=== PATIENT | male | born 2000 | race Caucasian/White ===

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

== ENCOUNTER 2024-09-14 15:29 | Outpatient (AMB) | payer BC, SELFPAY ==
--- NOTE | 2024-09-14 15:29 | MHC.PC.OV ---
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 Required: No Accompanied by: Self / Same As Patient Allergies peanut [PEANUT] Allergy (Severe, Unverified 09/14/24 15:53) ANAPHYLAXIS soy [SOY] Allergy (Severe, Unverified 09/14/24 15:53) ANAPHYLAXIS tree nut [TREE NUT] Allergy (Severe, Unverified 09/14/24 15:53) ANAPHYLAXIS banana [BANANA] Allergy (Unknown, Unverified 09/14/24 15:53) UNKNOWN grape [GRAPE] Allergy (Unknown, Unverified 09/14/24 15:53) UNKNOWN strawberry [STRAWBERRY] Allergy (Unknown, Unverified 09/14/24 15:53) UNKNOWN PEANUT BUTTER Allergy (Severe, Uncoded 09/14/24 15:53) ANAPHYLAXIS GREEN PEAS Allergy (Unknown, Uncoded 09/14/24 15:53) RASH, SHAKY MULTIPLE FOOD ALLERGIES Allergy (Unknown, Uncoded 09/14/24 15:53) Unknown Medication List - Last Reconciled 09/14/24 by Toñito Phillip MD No Known Home Meds Tobacco use date assessed: 09/14/24 Dental Screening Dental Screen Date: 09/14/24 Did you have a dental visit in the last 12 months?: Yes Did you have a dental problem in the last 6 months where you did not have access to dental care?: No Was dental information given to patient?: Patient has dentist [facility] Family History Father No problems noted. Mother No problems noted. Social History Housing: House Alcohol intake: current Alcohol intake frequency: does not drink Patient Tobacco Use Status: Never used Tobacco service: No Current occupational status: employed Cognitive needs: No Hearing needs: No Vision needs: Yes (rx glasses) Questionnaire PHQ-9 Over the last 2 weeks, how often have you been bothered by any of the following problems? 1. Little interest or pleasure in doing things: not at all 2. Feeling down, depressed, or hopeless: not at all 3. Trouble falling or staying asleep, or sleeping too much: not at all 4. Feeling tired or having little energy: not at all 5. Poor appetite or overeating: not at all 6. Feeling bad about yourself - or that you are a failure or have let yourself or your family down: not at all 7. Trouble concentrating on things, such as reading the newspaper or watching television: not at all 8. Moving or speaking so slowly that other people could have noticed. Or the opposite - being so fidgety or restless that you have been moving around a lot more than usual: not at all 9. Thoughts that you would be better off or of hurting yourself in some way: not at all Total score: 0 Source: Developed by Drs. Martin Diez, Nathaly Gonzalez, Qamar Castro and colleagues, with an educational benja from [employer]. Thrive Questionnaire Date Thrive assessed: 09/14/24 I am a: Patient What is your living situation today?: I have a steady place to live Within the past 12 months, did the food you bought not last and you didn't have the money to get more?: Never true Within the past 12 months, did you worry whether your food would run out before you got money to buy more?: Never true Do you have trouble paying for medicines?: No Do you have trouble getting transportation to medical appointments?: No Do you have trouble paying your heating and electricity bill?: No Do you have trouble taking care of your child, family member or friend?: No Do you have trouble with day-to-day activities such as bathing, preparing meals, shopping, managing finances, etc.?: No Are you currently unemployed and looking for a job?: No Are you interested in more education?: No Please select the resources that you would like help with: None THRIVE Score: 0 AUDIT C Alcohol Use Questionnaire (AUDIT-C) 1. How often do you have a drink containing alcohol?: Never 3. How often do you have six or more drinks on one occasion?: Never Total Score: 0 PAULETTE-7 AMB Questionnaire PAULETTE-7 Date PAULETTE - 7 assessed: 09/14/24 Feeling nervous, anxious, or on edge: 1 = Several days Not being able to stop or control worryin = Not at all Worrying too much about different things: 0 = Not at all Trouble relaxin = Not at all Being so restless that it is hard to sit still: 0 = Not at all Becoming easily annoyed or irritable: 0 = Not at all Feeling afraid as if something awful might happen: 0 = Not at all Total PAULETTE-7 score (0-4 normal; 5-9 mild; 10-14 moderate; 15-21 severe): 1 Source: Developed by Drs. Martin Diez, Nathaly Gonzalez, Qamar Castro and colleagues, with an educational benja from [employer]. Physical exam (Primary Care) Vital Signs: Last Vital Signs Temp 98.0 F 09/14/24 15:31 Pulse 84 09/14/24 15:31 Resp 16 09/14/24 15:31 BP 118/65 09/14/24 15:31 Pulse Ox 96 09/14/24 15:31 Oxygen Delivery Method Room Air 09/14/24 15:31 BMI result Body Mass Index 22.5 Tobacco/Smoking Status: Tobacco use Status Tobacco use date assessed 09/14/24 09/14/24 15:37 Patient Tobacco Use Status Never used Tobacco 09/14/24 15:37 PHQ-9: PHQ-9 Score PHQ-9: Total score 0 09/14/24 15:37 Thrive Assessment: Date of Thrive Assessment Date Thrive assessed 09/14/24 09/14/24 15:37 Coding Level of Care Code New Pt [facility] Care 18-39yr([id number] Diagnoses Annual physical exam Z00.00 Assessment & Plan Assessment & Plan (1) Annual physical exam: Code(s): Z00.00 - Encounter for general adult medical examination without abnormal findings Plan: BW ordered. Will call with the results Plan History of Present Illness 23 yr old patient presents [facility] and requests an annual physical. 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 He has not expressed any current health concerns, nor does he report taking any regular medications. 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 The patient uses nicotine pouches and denies using other substances. The patient has been consistently using protection during previous sexual activities and does not declare current sexual activity or relations with men. There is no report of pain or discomfort, and baseline assessments have been planned to ensure a smooth transition to adult healthcare. 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 - Education: Currently not in school, but intends to pursue a culinary certification. - Substance Use: Utilizes nicotine pouches; denies use of alcohol or tobacco. - Sexual Activity: Not currently sexually active; consistently uses protection during past sexual activity and denies sexual relations with men. - Physical Activity: Currently not participating in sports; intends to return to gym activities. Review of Systems - General: Denies current health concerns. - Respiratory: Denies symptoms. - Gastrointestinal: Denies stomach pain. - Genitourinary: Denies current sexual activity and reports consistent use of protection in past encounters. - Neurological: Denies symptoms. Physical Exam General: Cooperative and healthy appearing Nutritional Appearance: Well nourished Orientation/consciousness: Patient oriented x3 Limitations: No limitations Head: Normal to inspection General: Appearance normal, both eyes and all related structures Neck: Normal visual inspection Chest: Normal palpation of entire chest wall Respiratory: Breathe ormal respiratory effort Neurology: Patient oriented x3 Results - Labs: Baseline blood work and labs ordered. Plan Discussion Notes During the visit, I discussed with the patient the rationale for transitioning from pediatric to adult healthcare. I explained the importance of continuing preventive care and baseline health assessments, for which I ordered blood work. I discussed the appropriate use of protection during sexual activities to prevent sexually transmitted infections and emphasized that consistent usage is essential. He was advised on the benefits of engaging in regular physical activity and encouraged to follow through with his intention to resume gym-based workouts. We discussed the continuation of his nicotine pouch usage, with advisement on its risks. The patient was informed that this initial visit is mainly to establish care and collect baseline health metrics to ensure his health needs are managed appropriately as he transitions to adult health care services. Patient Instructions - Go to the lab for blood work and baseline tests. - Use protection if engaging in sexual activities. - Get involved in regular physical activity to improve overall health. - Be aware of the risks associated with nicotine pouches. - Follow up for routine health checks and care planning. Orders: Orders Basic Metabolic Panel Today Z00.00 - Encounter for general adult medical examination without abnormal findings Complete Blood Count no Diff Today Z00.00 - Encounter for general adult medical examination without abnormal findings UA and rflx microscopic Today Z00.00 - Encounter for general adult medical examination without abnormal findings Liver Panel Today Z00.00 - Encounter for general adult medical examination without abnormal findings Thyroid Stimulating Hormone Today Z00.00 - Encounter for general adult medical examination without abnormal findings
[2024-09-14 15:31] VITALS: BP 118/65; PULSE 84; RESP 16; TEMP 36.7; O2SAT 96; BMI 22.5
--- OUTSIDE RECORDS SUMMARY | 2024-09-14 16:18 | XMS_ITS | Encounter Summary ---
Author Organization [facility] Address [address] [place] [id number] Phone Care Team Providers Care Lease Administration Supervisor Name Role Phone Darryl Hammond MD Primary Care Provider [phone] Encounter Details Date Type Department Care Team (Late st Contact Info) Description 09/10/2010 Conversion Encounter [facility] [address] [place] [address] [place] [id number] Social History Tobacco Use Types Packs/Day Years Used Date Smoking Tobacco: Never Assessed Sex and Gender Information Value Date Recorded Sex Assigned at Not on file Legal Sex Male 6:28 PM EDT Gender Identity Not on file Sexual Orientation Not on file documented as of this encounter Plan of Treatment Upcoming Encounters Date Type Department Care Team (Late st Contact Info) Description 01/17/2025 11:30 AM EDT Office Visit [facility] [address] [place] [address] [place] [phone] Darryl Hammond MD [address] [place] [address] [place] [phone] documented as of this encounter Visit Diagnoses Not on filedocumented in this encounter Care Teams Lease Administration Supervisor Relationship Specialty Start Date End Date Darryl Hammond MD [address] [place] [address] [place] [address] PCP - General 09/10/17 documented as of this encounter
--- OUTSIDE RECORDS SUMMARY | 2024-09-14 16:18 | XMS_ITS | Clinical Summary ---
Author Organization [facility] Address [address] [place] [phone] Phone Care Team Providers Care Front End Alignment Specialist Name Role Phone Darryl Hammond MD Primary Care Provider [phone] Allergies Active Allergy Reactions Criticality Noted Date Comments Crab (Diagnostic) Environmental Food Garlic Isoflavones (Soy) Lemon Flavoring Agent (Non-Screening) Marijuana (Cannabis Sativa) 11/22/19 20 Peanuts (Food) Pecan Nut (Diagnostic) Pistachio Nut (Diagnostic) Tree Nuts (Food) Medications EPINEPHrine 0.3 MG/0.3ML injection syringe 12/29/2018 Active Active Problems Problem Noted Date Diagnosed Date Blood in stool, sergio 12/09/2023 Assessment & Plan (12/09/2023 9:06 AM EDT): Freddie has a long history of abdominal pain and discomfort. There is a family history of Crohn's disease. We will obtain blood work for Corhn's or other inflammatory processes, send him to GI, and start softening his stools. Resting tremor 08/29/2022 Assessment & Plan (08/29/2022 11:39 AM EDT): This appears to be a normal resting tremor. I have reassured him, this is normal. Family history of Crohn's disease 03/26/2019 Assessment & Plan (08/29/2022 11:39 AM EDT): Freddie's stomach has been doing well. His anxiety is low, he is working. No concerns. Doing well. Panic attack 01/15/2019 Dysthymic disorder 10/10/2016 Overview (12/02/2017): Depression with anxiety (300.4) Onset: 10/10/2016 Added by: Aura Vallejo Allergic rhinitis 09/13/2016 Overview (12/02/2017): Allergic rhinitis, unspecified cause (477.9) Onset: 09/13/2016 Added by: Christina Petty Anxiety and depression 12/23/2008 Resolved Problems Problem Noted Date Diagnosed Date Resolved Date Left testicular pain 11/29/2020 023 Assessment & Plan (11/29/2020 10:48 PM EDT): Mild varicocele noted on left side. Discussed this diagnosis. Will obtain ultrasound to confirm this. Consider referral to urology for varicocele. With testicular and groin pain, ultrasound to rule out hernia and testicular torsion. UA reassuring. Possible epididymitis with pain described. Will obtain urine culture as well as testing for gonorrhea and chlamydia. Accidental drug overdose 11/25/2019 Assessment & Plan (11/25/2019 9:02 AM EDT): He will continue with therapy and child psychiatrist. He was sleep deprived, used adderall, and was on marijuana and possibly LSD. He had hallucinations and paranoia. He will likely need treatment for anxiety. Other constipation 11/25/2019 0 Persistent testicular pain 11/22/2019 0 12/09/2019 Assessment & Plan (11/22/2019 4:05 PM EDT): This pain seems more like vascular stasis and blue balls , this does appear benign, and should go away on its own. I suggest to increase fluids of water, use ice when necessary. Continue to walk around. Gastroesophageal reflux disease 03/23/2019 08/29/2022 Abrasion of finger of left hand 03/08/2019 04/19/2019 Assessment & Plan (03/08/2019 2:34 PM EST): With history of significant abrasion of finger in a work shop concern for dirty wound. Tetanus vaccine most recently given over 5 years ago so will give a booster tetanus vaccine. Cleaned wound in office and put on zinc ointment and bandage. Should heal with time will also treat with topical antibiotic to area. Head injury due to trauma 02/16/2018 Acute non-recurrent maxillary sinusitis 01/16/2018 12/09/2019 Overweight 12/02/2017 12/09/2019 Irritable colon 11/14/2015 08/29/2022 Overview (12/02/2017): Irritable bowel syndrome (564.1) Onset: 11/14/2015 Added by: Darryl Hammond Encounters Date Type Department Care Team Description 08/23/2024 Erroneous Telephone Encounter [facility] [address] [facility] [place] [address] Emelyn Alberto from Last 3 Months Immunizations Immunization Administration Dates Next Due DTaP 5 12/24/2007, 5,05/24/2003,03/07,01/07/2003 HPV Vaccine 9 Valent 11/18/2016,11/14/2015 Hep A, ped/adol 12/04/2018,12/02/2017 Hep B, ped/adol 02/09/2004,05/24/2003,2002 Hib (PRP-T) 05/11/2004, 4,03/07/2003,01/07 IPV 12/24/2007, 5,03/07/2003,01/07 Influenza, injectable, quadrivalent 02/06/2018,0 06/12/2017 Influenza, injectable, quadr ivalent, preservative free 02/24/2020,01/05/2019,03/02/2015 Influenza, intranasal, quadrivalent 12/29/2012 Influenza, intranasal, trivalent 12/27/2011,12/04,12/26/2009 MMR 12/24/2007,12/09/2003 Meningococcal Conj (Menactra) MCV4P 12/04/2018,0 12/30/2013 Pneumococcal Conjugate 05/11/2004,2003,03/07/2003,01/07 Tdap 03/08/2019,12/30/2013 Varicella 12/24/2007,12/09/2003 Family History Medical History Relation Name Comments No Known Problems Brother Honorio Heart disease Father Mely Hypertension Father Mely Breast cancer Mother Ramiro Heart attack Mother Ramiro Hypotension Mother Ramiro No Known Problems Sister 1 Adrianne Skin cancer Sister 2 [place] Relation Name Status Comments Brother Honorio Alive Father Mely Alive Father: Alive a nd well Maternal Grandfather Materna l grandfather: Alcoholism Mother Ramiro Alive Mother: Anxiety , Neurofibromatosis, Alive and well Other Family history of Elevated cholesterol, Family history of Cancer -, Family history of Diabetes mellitus Paternal Grandfather Paterna l grandfather: Alive and well, Alcoholism Sister 1 Adrianne Sister: Develop mental delay, Anxiety Sister 2 [place] Sister: Develop mental delay, Anxiety Social History Tobacco Use Types Packs/Day Years Used Date Smoking Tobacco: Never Smokeless Tobacco: Never Tobacco Cessation:Counseling Given: No Alcohol Use Standard Drinks/Week Comments No 0 (1 standard drink = 0.6 oz pur e alcohol) Hunger/Food Answer Date Recorded In the last 12 months, did y ou or your family ever eat less than you felt you should because there wasn't enough money for food? No 01/09/2024 Stable Housing Answer Date Recorded Are you worried that in the next 2 months you may not have stable housing? No 01/09/2024 Transportation Concerns Answer Date Rec orded In the last 12 months, have you or your family ever had to go without healthcare because you didn't have a way to get there? No 01/09/2024 Hazards in Home Answer Date Recorded Think about the place you li ve. Do you have problems with any of the following? Pests (mice or roaches), mold, no/not working smoke detectors, water leaks, no window guards. No 2023 Financing Utilities Answer Date Recorde d In the last 12 months, has t he electric, gas, oil, or water company threatened to shut off your services in your home? No 01/09/2024 Safety at Home Answer Date Recorded Are you or your family worried about feeling saf e in your home? No 01/09/2024 Outside Support Answer Date Recorded Do you feel that you need mo re support from other people or programs to help you care for yourself or your family? No 01/09/2024 Understanding Health Concerns Answer Da te Recorded Do you need help understandi ng your or your child's healthcare needs (diagnosis, medications, plan, etc.)? No 01/09/2024 Financing Health Concerns Answer Date R ecorded In the last 12 months, was t here a time when your child needed to see a doctor or get medications or supplies but could not because of cost? No 01/09/2024 Missing School or Work Answer Date Migel rded Did you or your child miss s chool or work because of a health problem that could have been avoided? No 01/09/2024 Child Education Answer Date Recorded Do you have concerns about y our/your child's learning or behavior in school, preschool, or daycare? No 01/09/2024 Sex and Gender Information Value Date Recorded Sex Assigned at Not on file Legal Sex Male 6:28 PM EDT Gender Identity Not on file Sexual Orientation Not on file Last Filed Vital Signs Vital Sign Reading Time Taken Comments Blood Pressure 116/64 01/09/2024 1:05 PM EDT Pulse 95 01/07/2023 2:37 PM EDT Temperature 36.8 ??C (98.3 ??F) 01/09/2024 1:05 PM ED T Respiratory Rate - - Oxygen Saturation 96% 01/07/2023 2:37 PM EDT Inhaled Oxygen Concentration - - Weight 81 kg (178 lb 9.6 oz) 01/09/2024 1:05 PM EDT Height 193.7 cm (6' 4.25 ) 01/09/2024 1:05 PM ED T Body Mass Index 21.6 01/09/2024 1:05 PM EDT Plan of Treatment Upcoming Encounters Date Type Department Care Team (Late st Contact Info) Description 01/17/2025 11:30 AM EDT Office Visit [facility] [address] [place] [address] [place] [phone] Darryl Hammond MD [address] [place] [address] [place] [phone] Health Maintenance Due Date Last Done Comments Men B Vaccine (1 of 2 - Standard) 2018 Influenza Vaccines (#1) 2023 02/24/20, 01/05/2019, 02/06/2018, Additional history exists COVID-19 Vaccine (1 - 2023-2 5 season) 2024 DTaP,Tdap,and Td Vaccines (8 - Td or Tdap) 03/08/2029 03/08/2019, 12/30/2013, 12/24/2007, Additional history exists Hepatitis B Vaccines Completed 02/09/2004, 05/24/2003, 2002 HIB Vaccines Completed 05/11/2004, 05/06, 03/07/2003, Additional history exists Pneumococcal Vaccine Completed 05/11/2004, 05/24/2003, 03/07/2003, Additional history exists IPV Vaccines Completed 12/24/2007, 11/2004, 03/07/2003, Additional history exists MMR Vaccines Completed 12/24/2007, 12/09/2003 Varicella Vaccines Completed 12/24/2007, 12/09/2003 HPV Vaccines Completed 11/18/2016, 11/14/2015 Hepatitis A Vaccines Completed 12/04/2018, 12/03/19 18 Meningococcal Vaccine Completed 12/04/2018, 014 Insurance [facility] H[facility] Care Teams Front End Alignment Specialist Relationship Specialty Start Date End Date Darryl Hammond MD [address] [place] [address] [place] [address] [facility] - General 09/10/17
--- OUTSIDE RECORDS SUMMARY | 2024-09-14 16:18 | XMS_ITS | Encounter Summary ---
Author Organization [facility] Address [address] [place] [address] Phone Care Team Providers Care Link Trainer Teacher Name Role Phone Darryl Hammond MD Primary Care Provider [phone] Encounter Details Date Type Department Care Team (Late st Contact Info) Description 12/19/2016 Conversion Encounter [facility] - [address] [address] Social History Tobacco Use Types Packs/Day Years [...] Description 01/17/2025 11:30 AM EDT Office Visit [facility] [address] [place] [address] [place] [phone] Darryl Hammond MD [address] [place] [address] [place] [phone] documented as of this encounter Visit Diagnoses Not on filedocumented in this encounter Care Teams Link Trainer Teacher Relationship Specialty Start Date End Date Darryl Hammond MD [address] [place] [address] [place] [id number] PCP - General 09/10/17 documented as of this encounter
--- OUTSIDE RECORDS SUMMARY | 2024-09-14 16:18 | XMS_ITS | Encounter Summary ---
Author Organization [facility] Address [address] [place] [phone] Phone Care Team Providers Care Corporate Account Executive Name Role Phone Darryl Hammond MD Primary Care Provider Reason for Visit * Reason Comments Med Refill Encounter Details Date Type Department Care Team (Late st Contact Info) Description 09/15/2022 Refill [facility] [address] [place] [address] [place] [phone] Darryl Hammond MD [address] [place] [address] [place] [phone] Acne rosacea Social History Tobacco Use Types Packs/Day Years Used Date Smoking Tobacco: Never Smokeless Tobacco: Never Alcohol Use Standard Drinks/Week Comments No 0 (1 standard drink = 0.6 oz pur e alcohol) Hunger/Food Answer Date Recorded In the last 12 months, did y ou or your family ever eat less than you felt you should because there wasn't enough money for food? No 12/19/2021 Stable Housing Answer Date Recorded Are you worried that in the next 2 months you may not have stable housing? No 12/19/2021 Transportation Concerns Answer Date Rec orded In the last 12 months, have you or your family ever had to go without healthcare because you didn't have a way to get there? No 12/19/2021 Hazards in Home Answer Date Recorded Think about the place you li ve. Do you have problems with any of the following? Pests (mice or roaches), mold, no/not working smoke detectors, water leaks, no window guards. No 2021 Financing Utilities Answer Date Recorde d In the last 12 months, has t he electric, gas, oil, or water company threatened to shut off your services in your home? No 12/19/2021 Safety at Home Answer Date Recorded Are you or your family worried about feeling saf e in your home? No 12/19/2021 Outside Support Answer Date Recorded Do you feel that you need mo re support from other people or programs to help you care for yourself or your family? No 12/19/2021 Understanding Health Concerns Answer Da te Recorded Do you need help understandi ng your or your child's healthcare needs (diagnosis, medications, plan, etc.)? No 12/19/2021 Financing Health Concerns Answer Date R ecorded In the last 12 months, was t here a time when your child needed to see a doctor or get medications or supplies but could not because of cost? No 12/19/2021 Missing School or Work Answer Date Migel rded Did you or your child miss s chool or work because of a health problem that could have been avoided? No 12/19/2021 Sex and Gender Information Value Date Recorded Sex Assigned at Not on file Legal Sex Male 6:28 PM EDT Gender Identity Not on file Sexual Orientation Not on file documented as of this encounter Miscellaneous Notes * Telephone Encounter - Duke Kuhn MD - 09/16/2022 10:11 AM EDT Refilling currently but if persistent issue would want patient to follow up in the office. * Telephone Encounter - Paz Martell MA - 09/16/2022 8:23 AM EDT JABs absence documented in this encounter Plan of Treatment Upcoming Encounters Date Type Department Care Team (Late st Contact Info) Description 01/17/2025 11:30 AM EDT Office Visit [facility] [address] [place] [address] [place] [address] Darryl Hammond MD [facility] [place] [phone] documented as of this encounter Visit Diagnoses Diagnosis Acne rosacea Rosacea documented in this encounter Care Teams Corporate Account Executive Relationship Specialty Start Date End Date Darryl Hammond MD [facility] [place] [address] PCP - General 09/10/17 documented as of this encounter
== END 2024-09-14 15:48 | disposition home or self-care (01) ==
LOC: HO.HMCSH 15:29
PROVIDERS: PCP Internal Medicine; Visit Provider Internal Medicine
DX: Z00.00 Encounter for general adult medical examination without abnormal findings (principal)

== ENCOUNTER → 2024-09-14 15:29 | Outpatient (BNVA) | payer BC, SELFPAY | PROVIDERS: PCP Internal Medicine; Visit Provider Internal Medicine | DX: Z13.89 Encounter for screening for other disorder (principal) ==

== ENCOUNTER 2024-10-13 09:05 | Outpatient (REF) | payer BC, SELFPAY ==
--- OUTSIDE RECORDS SUMMARY | 2024-10-13 09:37 | XMS_ITS | Encounter Summary ---
Author Organization [facility] Address [address] [place] [address] Phone Care Team Providers Care Warehouse Driver Name Role Phone Darryl Hammond MD Primary Care Provider [phone] Encounter Details Date Type Department Care Team (Late st Contact Info) Description 09/10/2010 Conversion Encounter [facility] [address] [place] [address] [place] [phone] Social History Tobacco Use Types Packs/Day Years [...] Description 01/17/2025 11:30 AM EDT Office Visit [facility] [address] [place] [address] [place] [address] Darryl Hammond MD [address] [place] [address] [place] [address] documented as of this encounter Visit Diagnoses Not on filedocumented in this encounter Care Teams Warehouse Driver Relationship Specialty Start Date End Date Darryl Hammond MD [address] [place] [address] [place] [address] PCP - General 09/10/17 documented as of this encounter
[2024-10-13 10:34] LABS: Hematocrit 43.2 % (42.0-52.0); Hemoglobin 15.4 g/dl (14.0-18.0); Mean Corpuscular HGB Conc 35.6 g/dl (31.0-36.0); Mean Corpuscular Volume 89.6 fL (80.0-98.0); Mean Platelet Volume 10.2 fL (9.4-12.4); Platelet Count 280 X10*3/uL (160-400); Red Blood Count 4.82 X10*6/uL (4.60-5.80); Red Cell Distribution Width 12.4 % (11.0-16.0); White Blood Count 4.3 X10*3/uL (4.8-10.8)
[2024-10-13 10:48] LABS: Appearance Urine Clear; Color Urine Yellow; Glucose Urine UA Negative (Negative); Leukocyte Esterase Urine Negative (Negative); Nitrite Urine Negative (Negative); Specific Gravity - Urine <= 1.005 (1.005-1.025); Urine Blood Negative (Negative); Urine Ketones Negative (Negative); Urine Protein Negative (Neg-Trace)
[2024-10-13 10:55] LABS: Alanine Aminotransferase 23 U/L (0-40); Albumin Level 4.7 g/dL (3.5-5.0); Alkaline Phosphatase 83 U/L (39-117); Anion Gap 9 (12-20); Aspartate Amino Transferase 22 U/L (5-37); Bilirubin Direct 0.2 mg/dL (0.0-0.5); Bilirubin Total 0.5 mg/dL (0.0-1.0); Blood Urea Nitrogen 9 mg/dL (9-16); Calcium 9.6 mg/dL (8.4-10.2); Carbon Dioxide 29 mmol/L (22-29); Chloride 105 mmol/L (96-108); Estimated Glomerular Filt Rate > 60; Glucose Random 66 mg/dL (60-115); Potassium 3.8 mmol/L (3.3-5.1); Sodium 139 mmol/L (135-145); Total Protein 7.2 g/dL (6.5-8.0)
[2024-10-13 11:02] LABS: Thyroid Stimulating Hormone 1.11 uIU/mL (0.32-4.0)
== END 2024-10-13 09:06 | disposition home or self-care (01) ==
LOC: HO.HMGCLDS 09:05
PROVIDERS: PCP Internal Medicine; Visit Provider Internal Medicine
DX: Z00.00 Encounter for general adult medical examination without abnormal findings (principal)
CPT/HCPCS: 36415; 80048; 80076; 81003; 84443; 85027

== ENCOUNTER 2024-12-07 13:14 | Outpatient (AMB) | payer BC, SELFPAY ==
[2024-12-07 13:16] VITALS: BP 133/73; PULSE 100; RESP 14; TEMP 37; O2SAT 98; BMI 22.5
--- NOTE | 2024-12-07 13:16 | MHC.PC.OV ---
Vital Signs 12/07/24 13:16 Height 6 ft 3.2 in Weight 181 lb BMI 22.5 BP 133/73 Respiration 14 Pulse 100 Pulse Source Pulse Oximeter Temp 98.6 F Temp Source Temporal Artery Scan Pulse Oximetry (%) 98 Oxygen Delivery Method Room Air Intake Visit Reasons: Tremors Cinder Pit Worker Required: No Accompanied by: Mother Allergies peanut (PEANUT) Allergy (Severe, Unverified 12/07/24 13:31) ANAPHYLAXIS soy (SOY) Allergy (Severe, Unverified 12/07/24 13:31) ANAPHYLAXIS tree nut (TREE NUT) Allergy (Severe, Unverified 12/07/24 13:31) ANAPHYLAXIS PEANUT BUTTER Allergy (Severe, Uncoded 12/07/24 13:31) ANAPHYLAXIS chick peas Allergy (Mild, Uncoded 12/07/24 13:31) Unknown GREEN PEAS Allergy (Unknown, Uncoded 12/07/24 13:31) RASH, SHAKY MULTIPLE FOOD ALLERGIES Allergy (Unknown, Uncoded 12/07/24 13:31) Unknown Medication List - Last Reconciled 12/07/24 by Idalmis Cartwright PA-C No Known Home Meds Tobacco use date assessed: 12/07/24 Dental Screening Dental Screen Date: 09/14/24 HPI Tremors HPI Details The patient is a 24-year-old male presenting with tremors and anxiety. The tremors are described as intermittent shaking of the hands and occasionally the neck, occurring sporadically without a constant pattern. The patient reports that these episodes sometimes occur at work and are not necessarily associated with anxiety, although he is concerned about the onset of shaking. The patient has a history of anxiety, which was diagnosed in childhood, and he was previously prescribed lorazepam, although he is not currently taking it. He has not been hospitalized for anxiety or depression, but there was an episode in 2019 where he experienced a manic state after substance use, leading to hospitalization. The patient denies current use of substances other than nicotine pouches and occasional alcohol consumption, which may contribute to his symptoms. 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 - Substance Use: Uses nicotine pouches and consumes alcohol occasionally. - Exercise: Attends the gym but does not follow a consistent exercise regimen. [facility] Medical History (Updated 12/07/24 @ 13:58 by Idalmis Cartwright PA-C) Substance use disorder Anxiety Occasional tremors Family History Father No problems noted. Mother No problems noted. Social History Housing: House Alcohol intake: current Alcohol intake frequency: does not drink Patient Tobacco Use Status: Never used Tobacco service: No Current occupational status: employed Cognitive needs: No Hearing needs: No Vision needs: Yes (rx glasses) Questionnaire PHQ-9 Over the last 2 weeks, how often have you been bothered by any of the following problems? 1. Little interest or pleasure in doing things: not at all 2. Feeling down, depressed, or hopeless: not at all 3. Trouble falling or staying asleep, or sleeping too much: not at all 4. Feeling tired or having little energy: not at all 5. Poor appetite or overeating: not at all 6. Feeling bad about yourself - or that you are a failure or have let yourself or your family down: not at all 7. Trouble concentrating on things, such as reading the newspaper or watching television: not at all 8. Moving or speaking so slowly that other people could have noticed. Or the opposite - being so fidgety or restless that you have been moving around a lot more than usual: not at all 9. Thoughts that you would be better off or of hurting yourself in some way: not at all Total score: 0 Depression Screening Interpretation: Negative Depression Screening Done: Yes 53267 - PHQ-9 Billing: Yes Source: Developed by Drs. Martin Diez, Nathaly Gonzalez, Qamar Castro and colleagues, with an educational benja from [employer]. Thrive Questionnaire Date Thrive assessed: 09/14/24 I am a: Patient What is your living situation today?: I have a steady place to live Within the past 12 months, did the food you bought not last and you didn't have the money to get more?: Never true Within the past 12 months, did you worry whether your food would run out before you got money to buy more?: Never true Do you have trouble paying for medicines?: No Do you have trouble getting transportation to medical appointments?: No Do you have trouble paying your heating and electricity bill?: No Do you have trouble taking care of your child, family member or friend?: No Do you have trouble with day-to-day activities such as bathing, preparing meals, shopping, managing finances, etc.?: No Are you currently unemployed and looking for a job?: No Are you interested in more education?: No Please select the resources that you would like help with: None THRIVE Score: 0 AUDIT C Alcohol Use Questionnaire (AUDIT-C) 1. How often do you have a drink containing alcohol?: Never 3. How often do you have six or more drinks on one occasion?: Never Total Score: 0 Score Reviewed/Action Taken: No PAULETTE-7 AMB Questionnaire PAULETTE-7 Date PAULETTE - 7 assessed: 09/14/24 Feeling nervous, anxious, or on edge: 1 = Several days Not being able to stop or control worryin = Not at all Worrying too much about different things: 0 = Not at all Trouble relaxin = Not at all Being so restless that it is hard to sit still: 0 = Not at all Becoming easily annoyed or irritable: 0 = Not at all Feeling afraid as if something awful might happen: 0 = Not at all Total PAULETTE-7 score (0-4 normal; 5-9 mild; 10-14 moderate; 15-21 severe): 1 Source: Developed by Drs. Martin Diez, Nathaly Gonzalez, Qamar Castro and colleagues, with an educational benja from [employer]. PAULETTE-7 Assessment Billing PAULETTE-7 Assessment Tool: PAULETTE-7 Assessment 52920 Review of Systems Const Details: - Neurological: Reports intermittent tremors in hands and neck. Denies headaches, dizziness, or balance issues. - Psychiatric: Reports anxiety. Denies depression or other mood disorders. All systems reviewed & are unremarkable except as noted in HPI and below Physical exam (Primary Care) Vital Signs: Last Vital Signs Temp 98.6 F 12/07/24 13:16 Pulse 100 12/07/24 13:16 Resp 14 12/07/24 13:16 BP 133/73 12/07/24 13:16 Pulse Ox 98 12/07/24 13:16 Oxygen Delivery Method Room Air 12/07/24 13:16 Care Plan Goal for BP management: <140/90 at Goal BMI result Body Mass Index 22.5 Normal BMI Tobacco/Smoking Status: Tobacco use Status Tobacco use date assessed 12/07/24 12/07/24 13:17 Patient Tobacco Use Status Never used Tobacco 12/07/24 13:17 PHQ-9: PHQ-9 Score PHQ-9: Total score 0 12/07/24 13:25 Depression Screening Interpretation: Negative Thrive Assessment: Date of Thrive Assessment Date Thrive assessed 09/14/24 12/07/24 13:17 Const Other: Appearance: Alert. Oriented X3. No acute distress. Head: Normal external exam. Normocephalic. Atraumatic. Eyes: Pupils are equal, round, and reactive to light. Extraocular movements intact. Conjunctiva and sclera normal. Eyelids normal. Throat: Pharynx normal. Uvula midline. Moist mucous membranes. Neck: Normal inspection. Neck supple. Full range of motion. Cardiovascular: Normal heart rate and rhythm. Respiratory: No respiratory distress. Painless inspiration. Back: No costovertebral angle tenderness. Full range of motion noted. Skin: Skin warm and dry. Normal skin color. Normal skin turgor. No rashes/lesions/lacerations noted. Extremities: No lower extremity edema. Extremities exhibit normal range of motion. Neuro: Oriented X 3. Normal steady gait. No obvious tremors noted on exam at this time. Psych: Normal thought process. Normal affect. Coding Level of Care Code Est Pt Level 4 (43651) Complex EM visit Add On G2211 Diagnoses Occasional tremors R25.1 Anxiety F41.9 Substance use disorder F19.90 Additional Codes PHQ-9 - 46096 - PHQ-9 Billing: Yes ([id number]) PAULETTE-7 Assessment Billing - PAULETTE-7 Assessment Tool: PAULETTE-7 Assessment 17197 ([id number]) Time Spent (min) 40 Assessment & Plan Assessment & Plan (1) Occasional tremors: Code(s): R25.1 - Tremor, unspecified Category: Medical Plan: The plan for managing the patient's tremors includes conducting blood work to rule out any electrolyte imbalances or other underlying conditions. The patient will be referred to a therapist or psychiatrist for further evaluation, as the tremors may be related to anxiety. If the tremors persist despite stabilization, a referral to neurology will be considered. (2) Anxiety: Code(s): F41.9 - Anxiety disorder, unspecified Category: Medical Plan: The patient will be referred to Ruma Loja, a therapist, for evaluation and management of anxiety. A short-term prescription for hydroxyzine (Atarax) will be provided to help manage anxiety symptoms, particularly at bedtime. (3) Substance use disorder: Code(s): F19.90 - Other psychoactive substance use, unspecified, uncomplicated Category: Medical Plan: The patient is advised to reduce alcohol consumption and is informed about the potential for withdrawal symptoms, which may contribute to tremors. The patient is encouraged to be honest with healthcare providers about substance use to receive appropriate support and treatment. Plan Plan Patient was informed and verbally consented to the use of an ambient scribe for clinic note documentation during this visit. 1. Tremors The plan for managing the patient's tremors includes conducting blood work to rule out any electrolyte imbalances or other underlying conditions. The patient will be referred to a therapist or psychiatrist for further evaluation, as the tremors may be related to anxiety. If the tremors persist despite stabilization, a referral to neurology will be considered. 2. Anxiety The patient will be referred to Ruma Loja, a therapist, for evaluation and management of anxiety. A short-term prescription for hydroxyzine (Atarax) will be provided to help manage anxiety symptoms, particularly at bedtime. 3. Substance Use Disorder The patient is advised to reduce alcohol consumption and is informed about the potential for withdrawal symptoms, which may contribute to tremors. The patient is encouraged to be honest with healthcare providers about substance use to receive appropriate support and treatment. During the visit, I discussed with the patient the potential causes of his tremors, including anxiety and substance use. We agreed on conducting blood work to rule out any underlying conditions and referred him to Ruma Loja for further evaluation. I explained the use of hydroxyzine for managing anxiety symptoms and emphasized the importance of reducing alcohol consumption to prevent withdrawal symptoms. We also discussed the possibility of referring him to neurology if the tremors persist despite stabilization. Follow-up was planned to reassess his condition and the effectiveness of the interventions. Orders: Orders Complete Blood Count Auto Diff Today Z00.00 - Encounter for general adult medical examination without abnormal findings Comprehensive [place]. Panel Fast Today Z00.00 - Encounter for general adult medical examination without abnormal findings Lipid Panel Today Z00.00 - Encounter for general adult medical examination without abnormal findings Vitamin B12 and Folate Today Z. - Encounter for general adult medical examination without abnormal findings TSH reflex Free T4 Today Z. - Encounter for general adult medical examination without abnormal findings C Reactive Protein Today Z. - Encounter for general adult medical examination without abnormal findings Liver Panel Today Z. - Encounter for general adult medical examination without abnormal findings Hemoglobin A1c Today Z. - Encounter for general adult medical examination without abnormal findings Magnesium Today Z. - Encounter for general adult medical examination without abnormal findings Vitamin D 25-OH Total Today Z. - Encounter for general adult medical examination without abnormal findings PSA,Total (Free>4and<10) Today Z. - Encounter for general adult medical examination without abnormal findings Referrals Psychiatry Outpatient Consultation Service F41.9 - Anxiety disorder, unspecified, R25.1 - Tremor, unspecified Counseling Referral F41.9 - Anxiety disorder, unspecified, R25.1 - Tremor, unspecified Psychiatry Referral F41.9 - Anxiety disorder, unspecified, R25.1 - Tremor, unspecified Medications: New hydroxyzine HCl 25 mg PO BEDTIME 30 tabs 1RF anxiety Patient Instructions: - Follow up with Ruma Loja for therapy sessions. - Take hydroxyzine as prescribed to manage anxiety symptoms. - Reduce alcohol consumption to prevent withdrawal symptoms. - Complete the blood work as ordered to check for any underlying conditions. - Schedule a follow-up appointment in two months to reassess your condition.
--- OUTSIDE RECORDS SUMMARY | 2024-12-07 13:52 | XMS_ITS | Patient Health Record ---
Author Organization [facility] Julia brittaney Estiven Address [address] [place] [address] Care Team Providers Care Audio Visual Tech Name Role Phone Darryl Hammond MD Primary Care Provider Leah Barrow Unavailable [phone] Allergies Allergen (clinical drug ingredient) Drug/Non Drug Allergy documented on EMR Reaction Allergy Type Onset Date Status peanuts, cashews, Pistachios, Hazelnuts, soy (uncoded) anaphylaxis Allergy Active Reason For Referral No Information Medications Medication SIG (Take, Route, Frequency, Duration) Notes Start Date End Date Status Cephalexin 500 MG 1 tablet Orally Twic e a day; Duration: 10 day(s) Not-Duane ing Keflex 500 MG 1 capsule Orally mere ry 12 hrs; Duration: 07 days 10/29/2017 Active ProAir HFA Active Triamcinolone Acetonide Active Cephalexin 500 MG 1 tablet Orally Twic e a day; Duration: 07 days Active School Note . . . Pt was seen in office today; Duration: . 05/07/2017 Active EPINEPHrine Active Sertraline HCl Activ e Social History Tobacco Use: Social History Observation Description Date Details (start date - stop date) Never Smoker NA - NA Tobacco Use/Smoking Question Answer Notes Are you a: nonsmoker Additional Findings: Tobacco Non-User Current no n-smoker Alcohol Screen Question Answer Notes Did you have a drink containing alcohol in the p ast year? No Points 0 Interpretation Negative Tobacco use other than smoking: Question Answer Notes Are you an other tobacco user? Yes Plan Of Treatment Pending Test Test Name Order Date 46099-Rusdatyb Plate 10/08/2017 [id number] 10/29/2017 30384- Debride <25 sq cm 11/26/2017 [id number] SKIN/TISSUE 11/12/2017 82601 I&D ABSCESS- SIMPLE,SINGLE 018 43264 I&D ABSCESS- SIMPLE,SINGLE 018 Insurance Providers Payer Name Payer Address Payer Phone Subscriber Number Group Number Insured Name Patient Relationship to Insured Coverage Start Date Coverage End Date [facility] [address] [place], [place] [phone] [id number] Adam Tate Child - Insured has Financial Responsibility Medical (General) History Medical History History ICD Code Anxiety Surgical History Surgery Date(Month/Year) colonoscopy endoscopy
--- OUTSIDE RECORDS SUMMARY | 2024-12-07 13:52 | XMS_ITS | Clinical Summary ---
Author Organization [facility] Address [address] [facility] [address] [place] [address] Phone Care Team Providers Care Credit Resolution Representative Name Role Phone Darryl Hammond MD Primary Care Provider [phone] Allergies No known active allergies Medications famotidine (PEPCID) 20 MG tabletIndication s:Chest pain, unspecified type Take 1 tablet (20 mg total) by mouth 2 (two) times a day. 60 tablet 9 Active Additional Information Patient not taking.Reported on 06/08/2019 Active Problems Problem Noted Date Diagnosed Date Epigastric pain 03/26/2019 Pain of upper abdomen 03/26/2019 Family history of Crohn's disease 03/26/2019 Gastroesophageal reflux disease 03/23/2019 Chest pain 03/23/2019 Social History Tobacco Use Types Packs/Day Years Used Date Smoking Tobacco: Never Assessed Education Answer Date Recorded Are you interested in more education? Not on sherin e 08/30/2022 Are you concerned about learning? Not on file 08/30/2022 No 08/30/2022 No 08/30/2022 Digital Access Answer Date Recorded No 09/30/2022 No 09/30/2022 No 09/30/2022 Reliable internet access at home? Not on file 09/30/2022 Device with a working camera? Not on file Sex and Gender Information Value Date Recorded Sex Assigned at Not on file Legal Sex Male 4:46 PM EDT Gender Identity Not on file Sexual Orientation Not on file Last Filed Vital Signs Vital Sign Reading Time Taken Comments Blood Pressure 122/74 06/08/2019 2:39 PM EST Pulse - - Temperature - - Respiratory Rate - - Oxygen Saturation - - Inhaled Oxygen Concentration - - Weight 81.6 kg (180 lb) 06/08/2019 2:39 PM EST Height 189 cm (6' 2.41 ) 06/08/2019 2:39 PM EST Body Mass Index 22.86 06/08/2019 2:39 PM EST Plan of Treatment Health Maintenance Due Date Last Done Comments DEPRESSION SCREENING 2014 SMOKING Hx and SMOKELESS TOBACCO SCREENING 11/04/2015 MENINGOCOCCAL VACCINES (B) (1 of 2 - Standard) 2018 HEPATITIS C SCREENING 2020 HIV ONE-TIME SCREENING (18-65 YEARS) 2020 COVID-19 VACCINE (2023- season) 2024 Adult Td,Tdap Booster 03/08/2029 03/08/2019, 014 HIB VACCINES Completed 05/11/2004, 05/06, 03/07/2003, Additional history exists PNEUMOCOCCAL VACCINES (0-49 years) Aged Out 05/11/2004, 05/24/2003, 03/07/2003, Additional history exists No longer eligible based on patient's age to complete this topic HPV VACCINES Completed 11/18/2016, 11/14/2015 HEPATITIS A VACCINES Completed 12/04/2018, 12/03/19 18 MENINGOCOCCAL VACCINES (ACWY) Completed 12/04/2018, 12/30/2013 Medical Devices Not on file Insurance [facility] Member Subscriber Plan / Payer (Ef fective 2018-Present) Name:Will Batista Relation to Subscriber:Child Name:RAMIRO BATISAT Date of :1962 (Home) Address: [address] [place] [address] Payer ID:[id number] (NAIC) Type:HMO Address: [facility] [id number] [place] [id number] [place] [address] [place] [place] [address] [place] [address] [place] [address] [place] [address] [place] [address] [place] [address] [place] [id number] [place] [address] [place] [address] [place] [place] [address] [place] [address] [place] [address] HMO POS Care Teams Credit Resolution Representative Relationship Specialty Start Date End Date Darryl Hammond MD [employer] [facility] [place] [address] PCP - General Pediatrics 12/17/16 Additional Source Comments The information contained in this document represents components of the legal health record. It is not the complete legal health record.[facility]
--- OUTSIDE RECORDS SUMMARY | 2024-12-07 13:52 | XMS_ITS | Encounter Summary ---
Author Organization [facility] Address [address] [place] [address] Phone Care Team Providers Care Bench Molder Name Role Phone Darryl Hammond MD Primary Care Provider [phone] Encounter Details Date Type Department Care Team (Late st Contact Info) Description 09/10/2010 Conversion Encounter [facility] [address] [place] [address] [place] [address] Social History Tobacco Use Types Packs/Day Years Used Date Smoking Tobacco: Never Assessed Sex and Gender Information Value Date Recorded Sex Assigned at Not on file Legal Sex Male 6:28 PM EDT Gender Identity Not on file Sexual Orientation Not on file documented as of this encounter Plan of Treatment Not on file documented as of this encounter Visit Diagnoses Not on filedocumented in this encounter Care Teams Bench Molder Relationship Specialty Start Date End Date Darryl Hammond MD [address] [place] [address] [place] [address] PCP - General 09/10/17 10/25/24 documented as of this encounter
== END 2024-12-07 13:55 | disposition home or self-care (01) ==
LOC: HO.HMCSH 13:14
PROVIDERS: PCP Internal Medicine; Visit Provider Physician Assistant Medical
DX: R25.1 Tremor, unspecified (principal); F41.9 Anxiety disorder, unspecified; F19.90 Other psychoactive substance use, unspecified, uncomplicated

== ENCOUNTER → 2024-12-07 13:14 | Outpatient (BNVA) | payer BC, SELFPAY | PROVIDERS: PCP Internal Medicine; Visit Provider Physician Assistant Medical | DX: R25.1 Tremor, unspecified (principal); F41.9 Anxiety disorder, unspecified; F19.90 Other psychoactive substance use, unspecified, uncomplicated | CPT/HCPCS: 96127 ==

== ENCOUNTER 2024-12-22 13:54 | Outpatient (REF) | payer BC, SELFPAY ==
--- OUTSIDE RECORDS SUMMARY | 2024-12-22 14:52 | XMS_ITS | Patient Health Record ---
Author Organization [facility] Julia brittaney Robert Address [address] [facility] [place] [address] Care Team Providers Care Revenue Inspector Name Role Phone Darryl Hammond MD Primary Care Provider Leah Barrow Unavailable [phone] Allergies Allergen (clinical drug ingredient) Drug/Non Drug [...] Treatment Pending Test Test Name Order Date [id number] Plate 10/08/2017 [id number] 10/29/2017 [id number]- Debride <25 sq cm 11/26/2017 [id number] SKIN/TISSUE 11/12/2017 [id number] I&D ABSCESS- SIMPLE,SINGLE 018 [id number] I&D ABSCESS- SIMPLE,SINGLE 018 Insurance Providers Payer Name Payer Address Payer Phone Subscriber Number Group Number Insured Name Patient Relationship to Insured Coverage Start Date Coverage End Date [facility] [address] [place], [place] [phone] [id number] Adam Tate Child - Insured has Financial Responsibility Medical (General) History Medical History History ICD Code Anxiety Surgical History Surgery Date(Month/Year) colonoscopy endoscopy
--- OUTSIDE RECORDS SUMMARY | 2024-12-22 14:52 | XMS_ITS | Encounter Summary ---
Author Organization [facility] Address [address] [place] [address] Phone Care Team Providers Care Newspaper Clipper Name Role Phone Darryl Hammond MD Primary Care Provider [phone] Encounter Details Date Type Department Care Team (Late st Contact Info) Description 09/10/2010 Conversion Encounter [facility] [address] [place] [address] [place] [address] Social History Tobacco Use Types Packs/Day Years [...] on filedocumented in this encounter Care Teams Newspaper Clipper Relationship Specialty Start Date End Date Darryl Hammond MD [address] [place] [address] [place] [address] PCP - General 09/10/17 10/25/24 documented as of this encounter
[2024-12-22 17:17] LABS: MANUAL DIFF FLAG NO
[2024-12-22 17:44] LABS: Hematocrit 44.5 % (42.0-52.0); Hemoglobin 15.9 g/dl (14.0-18.0); Imm Gran Abs Auto 0.01 X10*3/uL (0.00-0.03); Imm Gran Pct Auto 0.2 % (0.0-0.4); Lymphocytes Absolute Auto 1.8 X10*3/uL (1.2-4.9); Mean Corpuscular HGB Conc 35.7 g/dl (31.0-36.0); Mean Corpuscular Hemoglobin 32.0 pg (27.0-33.0); Mean Corpuscular Volume 89.5 fL (80.0-98.0); NRBC Abs Auto 0.000 X10*3/uL (0.0-0.012); NRBC Pct Auto 0.0 /100WBC (0.0-0.2); Platelet Count 265 X10*3/uL (160-400); Red Blood Count 4.97 X10*6/uL (4.60-5.80); White Blood Count 4.6 X10*3/uL (4.8-10.8)
[2024-12-22 17:47] LABS: Hemoglobin A1C 129.4268 umol/L; Total Hemoglobin (HGBA1C) 4099.6071 umol/L
[2024-12-22 18:11] LABS: Alanine Aminotransferase 22 U/L (0-40); Albumin Level 4.6 g/dL (3.5-5.0); Alkaline Phosphatase 88 U/L (39-117); Anion Gap 14 (12-20); Aspartate Amino Transferase 24 U/L (5-37); Blood Urea Nitrogen 11 mg/dL (9-16); Calcium 9.0 mg/dL (8.4-10.2); Carbon Dioxide 27 mmol/L (22-29); Chloride 106 mmol/L (96-108); Cholesterol 161 mg/dL (<200); Estimated Glomerular Filt Rate > 60; HDL Cholesterol 51 mg/dL (>40); Magnesium 2.0 mg/dL (1.6-2.6); Potassium 4.3 mmol/L (3.3-5.1); Sodium 143 mmol/L (135-145); Total Protein 7.1 g/dL (6.5-8.0); Triglycerides 64 mg/dL (<150)
[2024-12-22 18:15] LABS: PSA,Total (Free>4and<10) 0.37 ng/mL (0.00-4.00)
[2024-12-22 18:28] LABS: Folate 10.9 ng/mL (> or = 4.0); Vitamin B12 720 pg/mL (200-900)
== END 2024-12-22 13:55 | disposition home or self-care (01) ==
LOC: HO.HMGCLDS 13:54
PROVIDERS: PCP Internal Medicine; Visit Provider Physician Assistant Medical
DX: Z00.00 Encounter for general adult medical examination without abnormal findings (principal); Z12.5 Encounter for screening for malignant neoplasm of prostate; Z13.6 Encounter for screening for cardiovascular disorders; Z13.1 Encounter for screening for diabetes mellitus; Z13.29 Encounter for screening for other suspected endocrine disorder
CPT/HCPCS: 36415; 80053; 80061; 80076; 82248; 82306; 82607; 82746; 83036; 83735; 84153; 84443; 85025; 86140

== ENCOUNTER 2025-01-13 15:45 | Outpatient (AMB) | payer BC, SELFPAY ==
--- NOTE | 2025-01-13 15:59 | MHC.OFFVISPS ---
Intake Intake Visit Reasons: consultation Solar Installation Crew Supervisor Required: No Allergies peanut (PEANUT) Allergy (Severe, Unverified 12/07/24 13:31) ANAPHYLAXIS soy (SOY) Allergy (Severe, Unverified 12/07/24 13:31) ANAPHYLAXIS tree nut (TREE NUT) Allergy (Severe, Unverified 12/07/24 13:31) ANAPHYLAXIS PEANUT BUTTER Allergy (Severe, Uncoded 12/07/24 13:31) ANAPHYLAXIS chick peas Allergy (Mild, Uncoded 12/07/24 13:31) Unknown GREEN PEAS Allergy (Unknown, Uncoded 12/07/24 13:31) RASH, SHAKY MULTIPLE FOOD ALLERGIES Allergy (Unknown, Uncoded 12/07/24 13:31) Unknown Medication List - Last Reconciled 01/13/25 by Ruma Villasenor APRN epinephrine (Auvi-Q) IM hydroxyzine HCl 25 mg PO BEDTIME HPI- Psychiatric Chief Complaint: consultation HPI Narrative: 24 yo referred by PCP for evaluation due to anxiety and episodic tremor that interferes with work and socializing. 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 Pt reports long history of anxiety since at least 14 yrs old. He was diagnosed with severe food allergies: tree nuts, soy, chickpeas and has needed Epi-pen. He has long history of stomach aches. He had school avoidance and social withdrawal as child and teen; He still does not socialize much outside of home although he has friends. 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 He worries every day. he worries that his hands will shake and other people will see the tremor, causing him to be embarrassed and more anxious. He uses nicotine pouches daily ingesting u to 90 mg of nicotine a day. He has recently used alcohol to reduce the tremor. he is adamant that the tremor started before the etoh use. He will drink 3-4 beers several times a week. He uses nbenadryl and melatonin at times for sleep; his PCP recently prescribed hydroxyzine 25mg and pt found it helpful although he took 4 tabs a day to mange the anxiety and sleeop. He denies side effects from it. 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 Subjective Subjective Subjective Medication Compliance: Yes Side effects from medications: No Review of Systems Medical Review of Systems: unchanged Mental Status Exam Mental Status Exam Patient Appearance: Well Grooomed, Perspiring and Appropriate Patient Orientation: Person, Place, Time and Situation Level of Consciousness: Awake, Appropriate and Alert Patient Behavior: Appropriate, Cooperative and Anxious Mood Description: Anxious Affect Description: Anxious and Nervous Patient Cognition Impaired: No Ability to Follow Directions: Good Speech Pattern: Clear and Coherent Memory Description: Intact Hallucinations: None Delusions: Not Present Thought Process: Intact Thought Content: positive for Obsessional Thoughts Judgement: Fair Assessment and Plan Assessment & Plan (1) Nicotine addiction: Status: Acute Qualifiers: Nicotine product type: other Substance use status: other nicotine-induced disorder Qualified Code(s): F17.298 - Nicotine dependence, other tobacco product, with other nicotine-induced disorders Code(s): F17.200 - Nicotine dependence, unspecified, uncomplicated (2) Occasional tremors: Status: Acute Code(s): R25.1 - Tremor, unspecified (3) Anxiety: Status: Acute Code(s): F41.9 - Anxiety disorder, unspecified Plan rule out OCD rule out mood disorder rule out schizoaffective do EKG ordered due to 90 mg nicotine daily TSH with reflex repeat hydroxyzine 25mg tid to qid prn anxiety and sleep max dose 100mg daily reduce nicotine pouches by 1-2 pouches every week as tolerated. consider addiction medicine referral Medications: Changed From hydroxyzine HCl 25 mg PO BEDTIME 30 tabs 1RF anxiety To hydroxyzine HCl 25 mg orally Take one tablet 3-4 times a day as needed for anxiety or insomnia; max daily dose of 100mg -do not exceed 120 tabs 1RF anxiety/sleep 30 days Orders: Orders TSH reflex Free T4 01/18/25 R25.1 - Tremor, unspecified, F41.9 - Anxiety disorder, unspecified ECG 12 lead EKG 01/18/25 F17.200 - Nicotine dependence, unspecified, uncomplicated, R25.1 - Tremor, unspecified, F41.9 - Anxiety disorder, unspecified Counseling and coordination of Care Pt. Self Management counseling: Mod caffeine/ETOH intake, Nutrition education and improvement, Sleep hygiene and General coping skills Details-Self Mgmt counseling: nicotine dependece and toxicity counseling to reduce and motivational interviewing- contemplation stage Medication management counseling: Effectiveness, Side effects, Dosing range, Duration, Drug interaction and Adherence Diagnosis and Prognosis Counseling: Accuracy of diagnosis, Prognosis over time, Impact of diagnosis on life functions, Impact of family relationship, Problematic behaviors secondary to diagnosis and Adequacy of current interventions Details: I spent 90 minutes reviewing the record, seeing the patient and documenting in the medical record. Counseling provided to the patient/caregiver as outlined below. Addressed patient/caregiver concerns regarding current medication regime including effective adherence. Addressed patient/caregiver concerns regarding diagnosis and prognosis including accuracy of diagnosis, prognosis over time, impact of diagnosis. Addressed patient/caregiver concerns regarding impact of recent stressors. [facility] Medical History (Updated 02/22/25 @ 16:26 by Idamlis Cartwright PA-C) Sinus tachycardia Right bundle branch block Substance use disorder Anxiety Occasional tremors Family History Father No problems noted. Mother No problems noted. Social History Housing: House Alcohol intake: current Alcohol intake frequency: does not drink Patient Tobacco Use Status: Never used Tobacco service: No Current occupational status: employed Cognitive needs: No Hearing needs: No Vision needs: Yes (rx glasses) Social History: lives with parents and 1 sister Substance History: THC daily use in past. None now; etoh 2 beers several times a week. nicotine pouches up to 63 mg per week or more. Trauma History: deferred Coding Level of Care Code Psych Diag Eval w/Med (79838) Diagnoses Other tobacco product nicotine dependence with other nicotine-induced disorder F17.298 Nicotine product type: other Substance use status: other nicotine-induced disorder Occasional tremors R25.1 Anxiety F41.9
--- OUTSIDE RECORDS SUMMARY | 2025-01-13 18:47 | XMS_ITS | Clinical Summary ---
Author Organization [facility] Address [address] [facility] [address] [place] [address] Phone Care Team Providers Care Topstitcher Lockstitch Name Role Phone Darryl Hammond MD Primary Care Provider [phone] Allergies No known active allergies Medications famotidine [...] 2020 HIV ONE-TIME SCREENING (18-65 YEARS) 2020 INFLUENZA VACCINE (#1) 2024 , 01/05/2019, 02/06/2018, Additional history exists COVID-19 VACCINE ( season) 2025 Adult Td,Tdap Booster 03/08/2029 03/08/2019, 014 HIB VACCINES Completed 05/11/2004, 05/06, 03/07/2003, Additional history exists PNEUMOCOCCAL VACCINES (0-49 years) Aged Out 05/11/2004, 05/24/2003, 03/07/2003, Additional history exists No longer eligible based on patient's age to complete this topic HPV VACCINES Completed 11/18/2016, 11/14/2015 HEPATITIS A VACCINES Completed 12/04/2018, 12/03/19 18 MENINGOCOCCAL VACCINES (ACWY) Completed 12/04/2018, 12/30/2013 Medical Devices Not on file Insurance [facility] [place] [address] [place] [address] [place] [address] [place] [address] [place] [place] [address] [place] [address] [place] [address] [place] [address] [place] [address] [place] [address] [place] [address] [place] [address] [address] [place] [address] [place] [address] [address] [place] [address] HMO POS Care Teams Topstitcher Lockstitch Relationship Specialty Start Date End Date Darryl Hammond MD [address] [place] [address] [place] [address] PCP - General Pediatrics 12/17/16 Additional Source Comments The information contained in this document represents components of the legal health record. It is not the complete legal health record.[facility]
--- OUTSIDE RECORDS SUMMARY | 2025-01-13 18:47 | XMS_ITS | Encounter Summary ---
Author Organization [facility] Address [address] [place] [address] Phone Care Team Providers Care Crop Consultant Name Role Phone Darryl Hammond MD Primary Care Provider [phone] Encounter Details Date Type Department Care Team (Late st Contact Info) Description 09/10/2010 Conversion Encounter [facility] [address] [place] [address] [place] [address] Social History Tobacco Use Types Packs/Day Years [...] on filedocumented in this encounter Care Teams Crop Consultant Relationship Specialty Start Date End Date Darryl Hammond MD [address] [place] [address] [place] [address] PCP - General 09/10/17 10/25/24 documented as of this encounter
--- OUTSIDE RECORDS SUMMARY | 2025-01-13 18:47 | XMS_ITS | Encounter Summary ---
Author Organization [facility] Address [address] [place] [address] Phone Care Team Providers Care Cement Patcher Name Role Phone Darryl Hammond MD Primary Care Provider [phone] Encounter Details Date Type Department Care Team (Late st Contact Info) Description 12/19/2016 Conversion Encounter [facility] - [address] [address] Social History Tobacco Use Types Packs/Day Years [...] on filedocumented in this encounter Care Teams Cement Patcher Relationship Specialty Start Date End Date Darryl Hammond MD [address] [place] [address] [place] [address] PCP - General 09/10/17 10/25/24 documented as of this encounter
--- OUTSIDE RECORDS SUMMARY | 2025-01-13 18:47 | XMS_ITS | Patient Health Record ---
Author Organization [facility] Julia brittaney Estiven Address [address] [facility] [place] [address] Care Team Providers Care Retail Department Supervisor Name Role Phone Darryl Hammond MD Primary Care Provider Leah Barrow Unavailable [phone] Allergies Allergen (clinical drug ingredient) Drug/Non Drug [...] Treatment Pending Test Test Name Order Date [id number] Plate 10/08/2017 [id number] 10/29/2017 [id number]- Debride <25 sq cm 11/26/2017 [id number] SKIN/TISSUE 11/12/2017 [id number] I&D ABSCESS- SIMPLE,SINGLE 018 [id number] I&D ABSCESS- SIMPLE,SINGLE 018 Insurance Providers Payer Name Payer Address Payer Phone Subscriber Number Group Number Insured Name Patient Relationship to Insured Coverage Start Date Coverage End Date [facility] [address] [place], [place] [phone] [id number] Adam Tate Child - Insured has Financial Responsibility Medical (General) History Medical History History ICD Code Anxiety Surgical History Surgery Date(Month/Year) colonoscopy endoscopy
--- OUTSIDE RECORDS SUMMARY | 2025-01-13 18:47 | XMS_ITS | Clinical Summary ---
Author Organization [facility] Address [address] [place] [address] Phone Care Team Providers Care Mass Spectrometry Specialist Name Role Phone Unavailable Primary Care Provider Unavailabl e Allergies Active Allergy Reactions Criticality Noted Date Comments Crab (Diagnostic) Environmental Food Garlic Isoflavones (Soy) Lemon Flavoring Agent (Non-Screening) Marijuana (Cannabis Sativa) 11/22/19 Peanuts (Food) Pecan Nut (Diagnostic) Pistachio Nut [...] (564.1) Onset: 11/14/2015 Added by: Darryl Hammond Immunizations Immunization Administration Dates Next Due DTaP [...] 95 01/07/2023 2:37 PM EDT Temperature 36.8 C (98.3 F) 01/09/2024 1:05 PM EDT Respiratory Rate - - Oxygen Saturation 96% 01/07/2023 2:37 PM EDT Inhaled Oxygen Concentration - - Weight 81 kg (178 lb 9.6 oz) 01/09/2024 1:05 PM EDT Height 193.7 cm (6' 4.25 ) 01/09/2024 1:05 PM ED T Body Mass Index 21.6 01/09/2024 1:05 PM EDT Plan of Treatment Health Maintenance Due Date Last Done Comments Men B Vaccine (1 of 2 - Standard) 2018 Influenza Vaccines (#1) 2024 02/24/20 20, 01/05/2019, 02/06/2018, Additional history exists COVID-19 Vaccine ( - 2023-2 5 season) 2025 DTaP,Tdap,and Td Vaccines (8 - Td or [...] 18 Meningococcal Vaccine Completed 12/04/2018, 014 [facility]
--- OUTSIDE RECORDS SUMMARY | 2025-01-13 18:47 | XMS_ITS | Encounter Summary ---
Author Organization [facility] Address [address] [place] [address] Phone Care Team Providers Care Medical Laboratory Assistant Name Role Phone Darryl Hammond MD Primary Care Provider [phone] Reason for Visit * Reason Comments Med Refill Encounter Details Date Type Department Care Team (Late st Contact Info) Description 09/15/2022 Refill [facility] [address] [place] [address] [place] [address] Darryl Hammond MD [address] [place] [address] [place] [address] Acne rosacea Social History Tobacco Use Types [...] documented in this encounter Plan of Treatment Not on file documented as of this encounter Visit Diagnoses Diagnosis Acne rosacea Rosacea documented in this encounter Care Teams Medical Laboratory Assistant Relationship Specialty Start Date End Date Darryl Hammond MD [facility] [place] [address] PCP - General 09/10/17 10/25/24 documented as of this encounter
== END 2025-01-13 16:10 | disposition home or self-care (01) ==
LOC: HO.HOP 15:45
PROVIDERS: PCP Internal Medicine; Visit Provider Clinical Nurse Specialist Psychiatric/Mental Health
DX: F17.298 Nicotine dependence, other tobacco product, with other nicotine-induced disorders (principal); R25.1 Tremor, unspecified; F41.9 Anxiety disorder, unspecified
CPT/HCPCS: 90792

== ENCOUNTER → 2025-01-13 15:45 | Outpatient (BNVA) | payer BC, SELFPAY | PROVIDERS: PCP Internal Medicine; Visit Provider Clinical Nurse Specialist Psychiatric/Mental Health | DX: F41.9 Anxiety disorder, unspecified (principal); F17.298 Nicotine dependence, other tobacco product, with other nicotine-induced disorders; R25.1 Tremor, unspecified | CPT/HCPCS: 90792 ==

== ENCOUNTER → 2025-01-18 13:36 | Outpatient (REF) | payer BC, SELFPAY ==
--- NOTE | 2025-01-18 13:42 | ECG_ITS ---
Test Reason : F17 Blood Pressure : */* mmHG Vent. Rate : 102 BPM Atrial Rate : 102 BPM P-R Int : 184 ms QRS Dur : 118 ms QT Int : 356 ms P-R-T Axes : 62 89 67 degrees QTcB Int : 463 ms Sinus tachycardia Incomplete right bundle branch block Borderline ECG When compared with ECG of 04-Nov-2019 23:40, Incomplete right bundle branch block is now Present Referred By: Ruma Villasenor Electronically Signed By: JOSÉ ALMEIDA
--- OUTSIDE RECORDS SUMMARY | 2025-01-18 17:31 | XMS_ITS | Encounter Summary ---
Author Organization [facility] Address [address] [place] [address] Phone Care Team Providers Care Nutrition Assistant Name Role Phone Darryl Hammond MD Primary Care Provider [phone] Encounter Details Date Type Department Care Team (Late st Contact Info) Description 12/19/2016 Conversion Encounter [facility] [place] [facility] - [address] [address] Social History Tobacco Use Types Packs/Day Years [...] on filedocumented in this encounter Care Teams Nutrition Assistant Relationship Specialty Start Date End Date Darryl Hammond MD [address] [place] [address] [place] [address] PCP - General 09/10/17 10/25/24 documented as of this encounter
--- OUTSIDE RECORDS SUMMARY | 2025-01-18 17:31 | XMS_ITS | Encounter Summary ---
Author Organization [facility] Address [address] [place] [address] Phone Care Team Providers Care Car Unloader Name Role Phone Darryl Hammond MD Primary Care Provider [phone] Encounter Details Date Type Department Care Team (Late st Contact Info) Description 09/10/2010 Conversion Encounter [facility] [address] [place] [address] [place] [address] Social History Tobacco Use Types Packs/Day Years [...] on filedocumented in this encounter Care Teams Car Unloader Relationship Specialty Start Date End Date Darryl Hammond MD [address] [place] [address] [place] [address] PCP - General 09/10/17 10/25/24 documented as of this encounter
--- OUTSIDE RECORDS SUMMARY | 2025-01-18 17:32 | XMS_ITS | Clinical Summary ---
Author Organization [facility] Address [address] [facility] [address] [place] [address] Phone Care Team Providers Care Philosophy Instructor Name Role Phone Darryl Hammond MD Primary Care Provider [phone] Allergies No known active allergies Medications famotidine [...] 12/30/2013 Medical Devices Not on file Insurance [facility] HMO [place] [address] [address] [address] [place] [address] [place] [address] [place] [id number] [place] [address] [address] [place] [address] [place] [address] [place] [address] HMO POS Care Teams Philosophy Instructor Relationship Specialty Start Date End Date Darryl Hammond MD [address] [place] [address] [place] [address] PCP - General Pediatrics 12/17/16 Additional Source Comments The information contained in this document represents components of the legal health record. It is not the complete legal health record.[facility]
--- OUTSIDE RECORDS SUMMARY | 2025-01-18 17:32 | XMS_ITS | Clinical Summary ---
Author Organization [facility] Address [address] [place] [address] Phone Care Team Providers Care Oncology Patient Navigator Name Role Phone Unavailable Primary Care Provider [...] 18 Meningococcal Vaccine Completed 12/04/2018, 014 [facility]
--- OUTSIDE RECORDS SUMMARY | 2025-01-18 17:32 | XMS_ITS | Encounter Summary ---
Author Organization [facility] Address [address] [place] [address] Phone Care Team Providers Care Rotary Veneer Machine Operator Name Role Phone Darryl Hammond MD Primary Care Provider [phone] Reason for Visit * Reason Comments Med Refill Encounter Details Date Type Department Care Team (Late st Contact Info) Description 09/15/2022 Refill [facility] [address] [place] [address] [place] [address] Darryl Hammond MD [address] [place] [address] [place] [address] Acne rosacea Social History Tobacco Use Types [...] Rosacea documented in this encounter Care Teams Rotary Veneer Machine Operator Relationship Specialty Start Date End Date Darryl Hammond MD [facility] [facility] [address] PCP - General 09/10/17 10/25/24 documented as of this encounter
--- OUTSIDE RECORDS SUMMARY | 2025-01-18 17:32 | XMS_ITS | Patient Health Record ---
Author Organization [facility] Julia brittaney Estiven Address [address] [facility] [place] [address] Care Team Providers Care Reservations Clerk Name Role Phone Darryl Hammond MD Primary Care Provider Leah Barrow Unavailable [phone] Allergies Allergen (clinical drug ingredient) Drug/Non Drug [...] Treatment Pending Test Test Name Order Date [id number] Plate 10/08/2017 [id number] 10/29/2017 71515- Debride <25 sq cm 11/26/2017 [id number] SKIN/TISSUE 11/12/2017 09534 I&D ABSCESS- SIMPLE,SINGLE 018 [id number] I&D ABSCESS- SIMPLE,SINGLE 018 Insurance Providers Payer Name Payer Address Payer Phone Subscriber Number Group Number Insured Name Patient Relationship to Insured Coverage Start Date Coverage End Date [facility] [address] [place], [place] [phone] [id number] Adam Tate Child - Insured has Financial Responsibility Medical (General) History Medical History History ICD Code Anxiety Surgical History Surgery Date(Month/Year) colonoscopy endoscopy
== END ==
LOC: HO.CARD 13:36
PROVIDERS: PCP Internal Medicine; Visit Provider Clinical Nurse Specialist Psychiatric/Mental Health
DX: F41.9 Anxiety disorder, unspecified (principal); R25.1 Tremor, unspecified; F17.200 Nicotine dependence, unspecified, uncomplicated
CPT/HCPCS: 36415; 84443; 93005

== ENCOUNTER → 2025-01-18 13:42 | Outpatient (BNV) | payer BC, SELFPAY | PROVIDERS: PCP Internal Medicine; Visit Provider Internal Medicine | DX: I45.10 Unspecified right bundle-branch block (principal); R00.0 Tachycardia, unspecified | CPT/HCPCS: 93010 ==

== ENCOUNTER 2025-02-22 15:25 | Outpatient (AMB) | payer BC, SELFPAY ==
--- NOTE | 2025-02-22 15:25 | MHC.OFFVISPS ---
Intake Intake Visit Reasons: F/U consultation General Adjuster Required: No Allergies peanut (PEANUT) Allergy (Severe, Unverified 12/07/24 13:31) ANAPHYLAXIS soy (SOY) Allergy (Severe, Unverified 12/07/24 13:31) ANAPHYLAXIS tree nut (TREE NUT) Allergy (Severe, Unverified 12/07/24 13:31) ANAPHYLAXIS PEANUT BUTTER Allergy (Severe, Uncoded 12/07/24 13:31) ANAPHYLAXIS chick peas Allergy (Mild, Uncoded 12/07/24 13:31) Unknown GREEN PEAS Allergy (Unknown, Uncoded 12/07/24 13:31) RASH, SHAKY MULTIPLE FOOD ALLERGIES Allergy (Unknown, Uncoded 12/07/24 13:31) Unknown Medication List - Last Reconciled 02/22/25 by Ruma Villasenor APRN epinephrine (Auvi-Q) IM hydroxyzine HCl 25 mg orally Take one tablet 3-4 times a day as needed for anxiety or insomnia; max daily dose of 100mg -do not exceed 30 days HPI- Psychiatric Chief Complaint: F/U consultation HPI Narrative: Pt here for follow up re: anxiety and nicotine abuse. Pt not able to cut back on nicotine pouches. He uses 75 pouches at 6 mg each every week; He admits at times it may be more than that per week. He continue to have slight tremor. he reports anxiety every day. he is using alcohol frequently; he is obsessive about water intake and drinks from plastic water bottle but leaves an inch in each bottle and goes on to open another. He also drinks bottle gatorade this way often drinking 6-8 of each a night. He completed [place] OCD scale in hte office today- pt has significant obsessional thoughts. PHQ9=2 and GAD7=3 although pt seems to minimize his symptoms. Discussed treatment for OCD with patient and mother; they are both concerned about him having Bipolar Disore due to past episode of pscyhosis. Pt states his mood does fluctuate and he tries to manage his mood carefully; He says if he misses 1-2 days of sleep he becomes very energetic and has more bizarre thoughts; We agreed to defer treatment with SSRI at this time and start mood stabilizer instead; reviewed benefits, risks and possible side effects for lamictal; he agrees to trial. HX:24 yo referred by PCP for evaluation due to anxiety and episodic tremor that interferes with work and socializing. 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 Pt reports long history of anxiety since at least 14 yrs old. He was diagnosed with severe food allergies: tree nuts, soy, chickpeas and has needed Epi-pen. He has long history of stomach aches. He had school avoidance and social withdrawal as child and teen; He still does not socialize much outside of home although he has friends. 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 He worries every day. he worries that his hands will shake and other people will see the tremor, causing him to be embarrassed and more anxious. He uses nicotine pouches daily ingesting u to 90 mg of nicotine a day. He has recently used alcohol to reduce the tremor. he is adamant that the tremor started before the etoh use. He will drink 3-4 beers several times a week. He uses nbenadryl and melatonin at times for sleep; his PCP recently prescribed hydroxyzine 25mg and pt found it helpful although he took 4 tabs a day to mange the anxiety and sleeop. He denies side effects from it. 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 Subjective Subjective Subjective Medication Compliance: Yes Side effects from medications: No Review of Systems Medical Review of Systems: unchanged Mental Status Exam Mental Status Exam Patient Appearance: Well Grooomed, Perspiring and Appropriate Patient Orientation: Person, Place, Time and Situation Level of Consciousness: Awake, Appropriate and Alert Patient Behavior: Appropriate, Cooperative and Anxious Mood Description: Anxious Affect Description: Anxious and Nervous Patient Cognition Impaired: No Ability to Follow Directions: Good Speech Pattern: Clear and Coherent Memory Description: Intact Hallucinations: None Delusions: Not Present Thought Process: Intact Thought Content: positive for Obsessional Thoughts Judgement: Fair Assessment and Plan Assessment & Plan (1) Nicotine addiction: Status: Acute Qualifiers: Nicotine product type: other Substance use status: other nicotine-induced disorder Qualified Code(s): F17.298 - Nicotine dependence, other tobacco product, with other nicotine-induced disorders Code(s): F17.200 - Nicotine dependence, unspecified, uncomplicated (2) Occasional tremors: Status: Acute Code(s): R25.1 - Tremor, unspecified (3) Anxiety: Status: Acute Code(s): F41.9 - Anxiety disorder, unspecified (4) OCD (obsessive compulsive disorder): Status: Acute Qualifiers: Obsessive-compulsive disorder type: mixed obsessional thoughts and acts Qualified Code(s): F42.2 - Mixed obsessional thoughts and acts Code(s): F42.9 - Obsessive-compulsive disorder, unspecified (5) Bipolar II disorder, mild, depressed, with anxious distress: Status: Acute Code(s): F31.81 - Bipolar II disorder Plan trial of lamictal 25mg daily x 10 days the 50mg daily x 10 days then 100mg daily x 10 days then 150mg daily hydroxyzine 25mg tid to qid prn anxiety and sleep max dose 100mg daily reduce nicotine pouches by 1-2 pouches every week as tolerated. consider addiction medicine referral collaborate with PCP re: EKG results Medications: New lamotrigine (Lamictal) 25 mg orally take one tablet daily x 10 days then take 2 tabs daily x 10 days then take 4 tabs daily thereafter 90 tabs 0RF Changed From hydroxyzine HCl 25 mg orally Take one tablet 3-4 times a day as needed for anxiety or insomnia; max daily dose of 100mg -do not exceed 30 days 120 tabs 1RF anxiety/sleep To hydroxyzine HCl 25 mg orally Take one tablet 3-4 times a day as needed for anxiety or insomnia; max daily dose of 100mg -do not exceed 120 tabs 1RF anxiety/sleep 30 days Counseling and coordination of Care Pt. Self Management counseling: Mod caffeine/ETOH intake, Nutrition education and improvement and General coping skills Details-Self Mgmt counseling: tobacco cessation Medication management counseling: Effectiveness, Side effects, Dosing range, Duration, Drug interaction and Adherence Diagnosis and Prognosis Counseling: Accuracy of diagnosis, Prognosis over time, Impact of diagnosis on life functions, Impact of family relationship, Problematic behaviors secondary to diagnosis and Adequacy of current interventions Details: I spent 45 minutes reviewing the record, seeing the patient and documenting in the medical record. Counseling provided to the patient/caregiver as outlined below. Addressed patient/caregiver concerns regarding current medication regime including effective adherence. Addressed patient/caregiver concerns regarding diagnosis and prognosis including accuracy of diagnosis, prognosis over time, impact of diagnosis. Addressed patient/caregiver concerns regarding impact of recent stressors. [facility] Medical History (Updated 02/22/25 @ 17:16 by Ruma Villasenor APRN) Sinus tachycardia Right bundle branch block Substance use disorder Anxiety Occasional tremors Family History Father No problems noted. Mother No problems noted. Social History Housing: House Alcohol intake: current Alcohol intake frequency: does not drink Patient Tobacco Use Status: Never used Tobacco service: No Current occupational status: employed Cognitive needs: No Hearing needs: No Vision needs: Yes (rx glasses) Social History: lives with parents and 1 sister; sister has Bipolar I Disorder Substance History: THC daily use in past. None now; etoh 2 beers several times a week. nicotine pouches up to 63 mg per week or more. Trauma History: deferred Coding Level of Care Code Est Pt Level 5 (33685) Diagnoses Other tobacco product nicotine dependence with other nicotine-induced disorder F17.298 Nicotine product type: other Substance use status: other nicotine-induced disorder Occasional tremors R25.1 Anxiety F41.9 Mixed obsessional thoughts and acts F42.2 Obsessive-compulsive disorder type: mixed obsessional thoughts and acts Bipolar II disorder, mild, depressed, with anxious distress F31.81
--- OUTSIDE RECORDS SUMMARY | 2025-02-22 20:35 | XMS_ITS | Encounter Summary ---
Author Organization [facility] Address [address] [place] [address] Phone Care Team Providers Care Security Operations Center Operator Name Role Phone Darryl Hammond MD Primary Care Provider [phone] Encounter Details Date Type Department Care Team (Late st Contact Info) Description 09/10/2010 Conversion Encounter [facility] [address] [place] [address] [place] [address] Social History Tobacco Use Types Packs/Day Years [...] on filedocumented in this encounter Care Teams Security Operations Center Operator Relationship Specialty Start Date End Date Darryl Hammond MD [address] [place] [address] [place] [address] PCP - General 09/10/17 10/25/24 documented as of this encounter
--- OUTSIDE RECORDS SUMMARY | 2025-02-22 20:35 | XMS_ITS | Encounter Summary ---
Author Organization [facility] Address [address] [place] [address] Phone Care Team Providers Care Superintendent Plant Protection Name Role Phone Darryl Hammond MD Primary Care Provider [phone] Encounter Details Date Type Department Care Team (Late st Contact Info) Description 12/19/2016 Conversion Encounter [facility] - [address] [address] Social History Tobacco Use Types Packs/Day Years [...] on filedocumented in this encounter Care Teams Superintendent Plant Protection Relationship Specialty Start Date End Date Darryl Hammond MD [address] [place] [address] [place] [address] PCP - General 09/10/17 10/25/24 documented as of this encounter
--- OUTSIDE RECORDS SUMMARY | 2025-02-22 20:36 | XMS_ITS | Patient Health Record ---
Author Organization [facility] Julia brittaney Estiven Address [address] [facility] [place] [address] Care Team Providers Care Drawer In Name Role Phone Darryl Hammond MD Primary Care Provider Leah Barrow Unavailable [phone] Allergies Allergen (clinical drug ingredient) Drug/Non Drug [...] Treatment Pending Test Test Name Order Date [id number] Plate 10/08/2017 [id number] 10/29/2017 [id number]- Debride <25 sq cm 11/26/2017 [id number] SKIN/TISSUE 11/12/2017 54889 I&D ABSCESS- SIMPLE,SINGLE 018 [id number] I&D ABSCESS- SIMPLE,SINGLE 018 Insurance Providers Payer Name Payer Address Payer Phone Subscriber Number Group Number Insured Name Patient Relationship to Insured Coverage Start Date Coverage End Date [facility] [address] [place], [place] [phone] [id number] Adam Tate Child - Insured has Financial Responsibility Medical (General) History Medical History History ICD Code Anxiety Surgical History Surgery Date(Month/Year) colonoscopy endoscopy
--- OUTSIDE RECORDS SUMMARY | 2025-02-22 20:36 | XMS_ITS | Clinical Summary ---
Author Organization [facility] Address [address] [facility] [address] [place] [address] Phone Care Team Providers Care Line Assembler Aircraft Name Role Phone Darryl aHmmond MD Primary Care Provider [phone] Allergies No known active allergies Medications famotidine [...] 01/05/2019, 02/06/2018, Additional history exists COVID-19 VACCINE (2024- season) 2025 Adult Td,Tdap Booster 03/08/2029 03/08/2019, [...] [facility] [place] [address] [place] [address] [place] [address] [place] [address] [place] [address] [place] [address] [place] [address] [place] [address] [place] [address] [place] [address] [place] [address] HMO POS Care Teams Line Assembler Aircraft Relationship Specialty Start Date End Date Darryl Hammond MD [address] [place] [address] [place] [address] PCP - General Pediatrics 12/17/16 Additional Source Comments The information contained in this document represents components of the legal health record. It is not the complete legal health record.[facility]
--- OUTSIDE RECORDS SUMMARY | 2025-02-22 20:36 | XMS_ITS | Clinical Summary ---
Author Organization [facility] Address [address] [place] [address] Phone Care Team Providers Care Cdl B Driver Name Role Phone Unavailable Primary Care Provider [...] Additional history exists COVID-19 Vaccine ( - 2024-2 6 season) 2025 DTaP,Tdap,and Td Vaccines (8 - [...] 18 Meningococcal Vaccine Completed 12/04/2018, 014 Insurance [facility]
--- OUTSIDE RECORDS SUMMARY | 2025-02-22 20:36 | XMS_ITS | Encounter Summary ---
Author Organization [facility] Address [address] [place] [address] Phone Care Team Providers Care Watershed Program Manager Name Role Phone Darryl Hammond MD Primary Care Provider [phone] Reason for Visit * Reason Comments Med Refill Encounter Details Date Type Department Care Team (Late st Contact Info) Description 09/15/2022 Refill [facility] [address] [place] [address] [place] [address] Darryl Hammond MD [address] [place] [address] [place] [address] Acne rosacea Social History Tobacco Use Types [...] Rosacea documented in this encounter Care Teams Watershed Program Manager Relationship Specialty Start Date End Date Darryl Hammond MD [facility] [facility] [place] [address] PCP - General 09/10/17 10/25/24 documented as of this encounter
== END 2025-02-22 16:37 | disposition home or self-care (01) ==
LOC: HO.HOP 15:25
PROVIDERS: PCP Internal Medicine; Visit Provider Clinical Nurse Specialist Psychiatric/Mental Health
DX: F41.9 Anxiety disorder, unspecified (principal); F17.298 Nicotine dependence, other tobacco product, with other nicotine-induced disorders; R25.1 Tremor, unspecified; F42.2 Mixed obsessional thoughts and acts; F31.81 Bipolar II disorder
CPT/HCPCS: 99215

== ENCOUNTER 2025-03-22 15:52 | Outpatient (AMB) | payer BC, SELFPAY ==
--- NOTE | 2025-03-22 15:49 | MHC.OFFVISPS ---
Intake Intake Visit Reasons: f/u consultation Radiation Therapy Technician Required: No Allergies peanut (PEANUT) Allergy (Severe, Unverified 12/07/24 13:31) ANAPHYLAXIS soy (SOY) Allergy (Severe, Unverified 12/07/24 13:31) ANAPHYLAXIS tree nut (TREE NUT) Allergy (Severe, Unverified 12/07/24 13:31) ANAPHYLAXIS PEANUT BUTTER Allergy (Severe, Uncoded 12/07/24 13:31) ANAPHYLAXIS chick peas Allergy (Mild, Uncoded 12/07/24 13:31) Unknown GREEN PEAS Allergy (Unknown, Uncoded 12/07/24 13:31) RASH, SHAKY MULTIPLE FOOD ALLERGIES Allergy (Unknown, Uncoded 12/07/24 13:31) Unknown Medication List - Last Reconciled 03/22/25 by Ruma Villasenor APRN epinephrine (Auvi-Q) IM hydroxyzine HCl 25 mg orally Take one tablet 3-4 times a day as needed for anxiety or insomnia; max daily dose of 100mg -do not exceed 30 days lamotrigine (Lamictal) 25 mg orally take one tablet daily x 10 days then take 2 tabs daily x 10 days then take 4 tabs daily thereafter HPI- Psychiatric Chief Complaint: f/u consultation HPI Narrative: Pt here with his mother for follow up re: anxiety and nicotine addiction. They arrived 15 minutes late. Pt did not start the lamictal as recommeded. His mother brought in 5 empty packages of Kratom that she found in his room. Pt admits to using large amounts of Kratom, alcohol, energy drinks, nicotine pouches. He denies withdrawal symptoms although having palpitations and tremors. Pt denies psychosis. Pt denies SI or HI; He reports he will call [facility] inpatient rehab. He reports he will start the lamictal. 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 Subjective Subjective Medication Compliance: No Review of Systems Medical Review of Systems: unchanged Mental Status Exam Mental Status Exam Patient Appearance: Disheveled, Perspiring and Appropriate Patient Orientation: Person, Place, Time and Situation Level of Consciousness: Awake, Appropriate and Alert Patient Behavior: Appropriate, Cooperative, Anxious and Good Eye Contact Mood Description: Anxious Affect Description: Anxious and Nervous Patient Cognition Impaired: No Ability to Follow Directions: Poor Speech Pattern: Mumbled Memory Description: Intact Hallucinations: None Delusions: Not Present Thought Process: Intact and Goal Oriented Thought Content: positive for Intact, positive for Obsessional Thoughts and positive for Goal Oriented Judgement: Poor Assessment and Plan Assessment & Plan (1) Nicotine addiction: Status: Acute Qualifiers: Nicotine product type: other Substance use status: other nicotine-induced disorder Qualified Code(s): F17.298 - Nicotine dependence, other tobacco product, with other nicotine-induced disorders Code(s): F17.200 - Nicotine dependence, unspecified, uncomplicated (2) Occasional tremors: Status: Acute Code(s): R25.1 - Tremor, unspecified (3) Anxiety: Status: Acute Code(s): F41.9 - Anxiety disorder, unspecified (4) OCD (obsessive compulsive disorder): Status: Acute Qualifiers: Obsessive-compulsive disorder type: mixed obsessional thoughts and acts Qualified Code(s): F42.2 - Mixed obsessional thoughts and acts Code(s): F42.9 - Obsessive-compulsive disorder, unspecified (5) Bipolar II disorder, mild, depressed, with anxious distress: Status: Acute Code(s): F31.81 - Bipolar II disorder (6) Substance abuse, continuous: Status: Acute Code(s): F19.10 - Other psychoactive substance abuse, uncomplicated (7) Substance use disorder: Status: Acute Code(s): F19.90 - Other psychoactive substance use, unspecified, uncomplicated Plan education re; substance abuse and need for treatment; I gave the the number for [facility] drug [facility]hab. They said they would call. He and his family need therapy and more services than I can provide in a consultation. recommend addiction medicine consult referrall to a clinic that has dual dx services for him and for family counseling coordinate with PCP Counseling and coordination of Care Pt. Self Management counseling: Mod caffeine/ETOH intake, Nutrition education and improvement, Substance abuse tx adhere, General coping skills and Problem solving Details-Self Mgmt counseling: tobacco cessation addiction medicine fro kratom, nicotine, etoh, energy drinks Medication management counseling: Effectiveness, Side effects, Dosing range, Duration, Drug interaction and Adherence Diagnosis and Prognosis Counseling: Accuracy of diagnosis, Prognosis over time, Impact of diagnosis on life functions, Impact of family relationship, Problematic behaviors secondary to diagnosis and Adequacy of current interventions Details: I spent 45 minutes reviewing the record, seeing the patient and documenting in the medical record. Counseling provided to the patient/caregiver as outlined below. Addressed patient/caregiver concerns regarding current medication regime including effective adherence. Addressed patient/caregiver concerns regarding diagnosis and prognosis including accuracy of diagnosis, prognosis over time, impact of diagnosis. Addressed patient/caregiver concerns regarding impact of recent stressors. [facility] Medical History (Updated 03/29/25 @ 12:41 by Ruma Villasenor APRN) Sinus tachycardia Right bundle branch block Substance use disorder Anxiety Occasional tremors Family History Father No problems noted. Mother No problems noted. Social History Housing: House Alcohol intake: current Alcohol intake frequency: does not drink Patient Tobacco Use Status: Never used Tobacco service: No Current occupational status: employed Cognitive needs: No Hearing needs: No Vision needs: Yes (rx glasses) Social History: lives with parents and 1 sister; sister has Bipolar I Disorder Substance History: THC daily use in past. None now; etoh 2 beers several times a week. nicotine pouches up to 63 mg per week or more. Trauma History: deferred Coding Level of Care Code Est Pt Level 5 (16788) Diagnoses Other tobacco product nicotine dependence with other nicotine-induced disorder F17.298 Nicotine product type: other Substance use status: other nicotine-induced disorder Occasional tremors R25.1 Anxiety F41.9 Mixed obsessional thoughts and acts F42.2 Obsessive-compulsive disorder type: mixed obsessional thoughts and acts Bipolar II disorder, mild, depressed, with anxious distress F31.81 Substance abuse, continuous F19.10 Substance use disorder F19.90
== END 2025-03-22 16:12 | disposition home or self-care (01) ==
LOC: HO.HOP 15:52
PROVIDERS: PCP Physician Assistant Medical; Visit Provider Clinical Nurse Specialist Psychiatric/Mental Health
DX: F17.298 Nicotine dependence, other tobacco product, with other nicotine-induced disorders (principal); R25.1 Tremor, unspecified; F41.9 Anxiety disorder, unspecified; F42.2 Mixed obsessional thoughts and acts; F31.81 Bipolar II disorder; F19.10 Other psychoactive substance abuse, uncomplicated; F19.90 Other psychoactive substance use, unspecified, uncomplicated
CPT/HCPCS: 99215

== ENCOUNTER → 2025-04-07 08:03 | Outpatient (REF) | payer BC, SELFPAY ==
--- NOTE | 2025-04-07 08:06 | CA_ITS ---
Transthoracic Echocardiogram Patient (Last, First, Middle): Will Tate, Gender: M Date of : 2000 Age: 24 Procedure Date: 04/07/2025 Procedure Type: Transthoracic Echocardiogram Location: OP Height: 190.5 cm Weight: 82.1 kg BSA: 2.10 m2 Heart Rate: bpm BP: 118 / 64 mmHg Pipe Fittings Molder: SB Referring MD: Idalmis Cartwright PA-C Symptoms: R00.0 - Tachycardia, unspecified/RBBB Study Quality: Adequate ECG Rhythm: Sinus Conclusions: - The left ventricular systolic function is normal. The calculated ejection fraction is 59% by biplane method. - No obvious valvular pathology seen on this study. Findings Left Ventricle Normal left ventricular cavity size. There is normal left ventricular wall thickness. The left ventricular systolic function is normal. The calculated ejection fraction is 59% by biplane method. There is no evidence of regional wall motion abnormalities. Diastolic function is normal for age. Right Ventricle Normal right ventricular cavity size. There is normal right ventricular systolic function. Atria Both atria are normal in size. Aortic Valve There is a normal trileaflet aortic valve. There is no aortic valve stenosis. There is no aortic valve regurgitation. Mitral Valve There is no mitral valve regurgitation. There is no mitral valve stenosis. Posterior leaflet not well visualized. Pulmonic Valve The pulmonic valve is likely normal. Tricuspid Valve Normal tricuspid valve structure. There is trace tricuspid valve regurgitation. There is no evidence of pulmonary hypertension. Great Vessels The asc aorta and aortic arch are normal in size. Venous The inferior vena cava is normal in size and collapses greater than 50% with inspiration. Pericardium/Pleural There is no evidence of pericardial effusion. Prior Study Comparison No prior study available for comparison. Recommendations, Care & Conclusions No obvious valvular pathology seen on this study. Measurements 2D Linear Measurements IVSd: 0.98 0.6-0.9/0.6-1.0 cm LVIDd: 5.55 3.9-5.3/4.2-5.9 cm LVIDd Index: 2.64 2.4-3.2/2.2-3.1 cm/m2 LVIDs: 3.51 2.0-3.6 cm LVPWd: 0.75 0.7-1.1 cm LA Diam: 2.70 2.7-3.8/3.0-4.0 cm LAIDs Index: 1.29 1.5-2.3 cm/m2 LV Mass: 224.63 67-162/88-224 g LV Mass Index: 106.97 43-95/49-115 g/m2 LVOT Diam: 2.50 3.0+(-)1.3 cm 2D Systolic Function EF 4C: 64.30 >55% EF 2C: 55.40 >55% EF BiP: 59.20 >55% Mitral Valve MV Pk E: 1.01 MV PK A: 0.48 MV Decel Time: 153.00 E/A: 2.10 E'Lateral: 13.90 E'Medial: 12.90 E/E' Med: 7.80 E/E' Lat: 7.30 PHT: 45.00 MVA PHT: 4.89 Decel Faulkner: 6.62 Aortic Valve AoV Pk Joseph: 0.98 AoV Pk Grad: 4.00 LVOT LVOT Pk Joseph: 1.02 LVOT Mn Joseph: 0.65 LVOT VTI: 0.18 LVOT Pk Grad: 4.00 LVOT Mn Grad: 2.00 LVOT Diam: 2.50 LVOT Area: 4.91 Diastolic Function MV Pk E: 1.01 MV Pk A: 0.48 E/A: 2.10 E'Medial: 12.90 E/E' Med: 7.80 E' Laterial: 13.90 E/E' Lat: 7.30 Right Ventricle TAPSE (mm): 18.50 TVS' Joseph: 12.20 Tricuspid Valve TR Pk Joseph: 2.10 TR Pk Grad: 18.00 Great Vessels Aorta Sinus of Valsalva: 3.20 2.0-3.5 cm Ao Asc: 2.60 2.1-3.4 cm Ao Arch: 2.00 Ao Desc: 1.70 Pulmonary Veins Pulm Vein S/D 1.80 Pulmonary Valve PV Pk Joseph: 1.04 Peak PV Grad: 4.00 Updated in Other Vendor System with Status of Final Lasha Escalona MD electronically signed on 04/08/2025 4:05:03 PM with status of Final
--- OUTSIDE RECORDS SUMMARY | 2025-04-07 08:11 | XMS_ITS | Encounter Summary ---
Author Organization [facility] Address [address] [place] [address] Phone Care Team Providers Care Measurement Coordinator Name Role Phone Darryl Hammond MD Primary Care Provider [phone] Encounter Details Date Type Department Care Team (Late st Contact Info) Description 09/10/2010 Conversion Encounter [facility] [address] [place] [address] [place] [address] Social History Tobacco Use Types Packs/Day Years [...] on filedocumented in this encounter Care Teams Measurement Coordinator Relationship Specialty Start Date End Date Darryl Hammond MD [address] [place] [address] [place] [address] PCP - General 09/10/17 10/25/24 documented as of this encounter
--- OUTSIDE RECORDS SUMMARY | 2025-04-07 08:12 | XMS_ITS | Clinical Summary ---
Author Organization [facility] Address [address] [facility] [address] [place] [address] Phone Care Team Providers Care Stemmer Machine Name Role Phone Darryl Hammond MD Primary Care Provider [phone] Allergies No known active allergies Medications famotidine [...] 12/30/2013 Medical Devices Not on file Insurance [facility] [place] [address] [place] [address] [place] [address] [place] [address] [place] [address] [place] [id number] [place] [address] [place] [address] [place] [address] [place] [address] [place] [address] [place] [address] [place] [place] [address] [place] [address] HMO POS Care Teams Stemmer Machine Relationship Specialty Start Date End Date Darryl Hammond MD [address] [place] [address] [place] [address] PCP - General Pediatrics 12/17/16 Additional Source Comments The information contained in this document represents components of the legal health record. It is not the complete legal health record.[facility]
--- OUTSIDE RECORDS SUMMARY | 2025-04-07 08:12 | XMS_ITS | Patient Health Record ---
Author Organization [facility] Julia brittaney Estiven Address [address] [facility] [place] [address] Care Team Providers Care Medication Care Manager Name Role Phone Darryl Hammond MD Primary Care Provider Leah Barrow Unavailable [phone] Allergies Allergen (clinical drug ingredient) Drug/Non Drug [...] Treatment Pending Test Test Name Order Date [id number] Plate 10/08/2017 [id number] 10/29/2017 [id number]- Debride <25 sq cm 11/26/2017 [id number] SKIN/TISSUE 11/12/2017 [id number] I&D ABSCESS- SIMPLE,SINGLE 018 [id number] I&D ABSCESS- SIMPLE,SINGLE 018 Insurance Providers Payer Name Payer Address Payer Phone Subscriber Number Group Number Insured Name Patient Relationship to Insured Coverage Start Date Coverage End Date [facility] [address] [place], [place] [phone] [id number] Adam Tate Child - Insured has Financial Responsibility Medical (General) History Medical History History ICD Code Anxiety Surgical History Surgery Date(Month/Year) colonoscopy endoscopy
--- OUTSIDE RECORDS SUMMARY | 2025-04-07 08:12 | XMS_ITS | Encounter Summary ---
Author Organization [facility] Address [address] [place] [address] Phone Care Team Providers Care Pottery Decorator Name Role Phone Darryl Hammond MD Primary Care Provider [phone] Encounter Details Date Type Department Care Team (Late st Contact Info) Description 12/19/2016 Conversion Encounter [facility] - [address] [address] Social History Tobacco Use Types Packs/Day Years [...] on filedocumented in this encounter Care Teams Pottery Decorator Relationship Specialty Start Date End Date Darryl Hammond MD [address] [place] [address] [place] [address] PCP - General 09/10/17 10/25/24 documented as of this encounter
--- OUTSIDE RECORDS SUMMARY | 2025-04-07 08:12 | XMS_ITS | Encounter Summary ---
Author Organization [facility] Address [address] [place] [address] Phone Care Team Providers Care Event Staff Member Name Role Phone Darryl Hammond MD Primary Care Provider [phone] Reason for Visit * Reason Comments Med Refill Encounter Details Date Type Department Care Team (Late st Contact Info) Description 09/15/2022 Refill [facility] [address] [place] [address] [place] [address] Darryl Hammond MD [address] [place] [address] [place] [address] Acne rosacea Social History Tobacco Use Types [...] Rosacea documented in this encounter Care Teams Event Staff Member Relationship Specialty Start Date End Date Darryl Hammond MD [facility] [place] [address] PCP - General 09/10/17 10/25/24 documented as of this encounter
--- OUTSIDE RECORDS SUMMARY | 2025-04-07 08:12 | XMS_ITS | Clinical Summary ---
Author Organization [facility] Address [address] [place] [address] Phone Care Team Providers Care Can Labeler Name Role Phone Unavailable Primary Care Provider [...] 18 Meningococcal Vaccine Completed 12/04/2018, 014 Insurance [facility]
== END ==
LOC: HO.CARD 08:03
PROVIDERS: PCP Internal Medicine; Visit Provider Physician Assistant Medical
DX: R00.0 Tachycardia, unspecified (principal); I45.10 Unspecified right bundle-branch block; F17.298 Nicotine dependence, other tobacco product, with other nicotine-induced disorders
CPT/HCPCS: 93306

== ENCOUNTER → 2025-04-07 08:06 | Outpatient (BNV) | payer BC, SELFPAY | PROVIDERS: PCP Internal Medicine; Visit Provider Internal Medicine | DX: I45.10 Unspecified right bundle-branch block (principal); R00.0 Tachycardia, unspecified | CPT/HCPCS: 93306 ==

== ENCOUNTER 2025-04-25 15:04 | Outpatient (AMB) | payer BC, SELFPAY ==
--- NOTE | 2025-04-25 15:08 | A.OFFPSYCH_ITS ---
Intake Intake Visit Reasons: f/u consultation Professional Application Designer Required: No Allergies peanut (PEANUT) Allergy (Severe, Unverified 12/07/24 13:31) ANAPHYLAXIS soy (SOY) Allergy (Severe, Unverified 12/07/24 13:31) ANAPHYLAXIS tree nut (TREE NUT) Allergy (Severe, Unverified 12/07/24 13:31) ANAPHYLAXIS PEANUT BUTTER Allergy (Severe, Uncoded 12/07/24 13:31) ANAPHYLAXIS chick peas Allergy (Mild, Uncoded 12/07/24 13:31) Unknown GREEN PEAS Allergy (Unknown, Uncoded 12/07/24 13:31) RASH, SHAKY MULTIPLE FOOD ALLERGIES Allergy (Unknown, Uncoded 12/07/24 13:31) Unknown Medication List - Last Reconciled 04/25/25 by Ruma Villasenor APRN epinephrine (Auvi-Q) IM hydroxyzine HCl 25 mg orally Take one tablet 3-4 times a day as needed for anxiety or insomnia; max daily dose of 100mg -do not exceed 30 days lamotrigine (Lamictal) 25 mg orally take one tablet daily x 10 days then take 2 tabs daily x 10 days then take 4 tabs daily thereafter HPI- Psychiatric Chief Complaint: f/u consultation HPI Narrative: Pt here with his mother for follow up re: anxiety and poly substance abuse including, nicotine, kratom THC, etoh. Pt still did not start the lamictal as recommeded. Pt reports that he stopped using alcohol completely since last visit. He continues to use Kratom but has cut back. He continues to use nicotine pouches approximately 10 per day. He denies withdrawal symptoms although having palpitations and tremors. Pt denies psychosis. Pt denies SI or HI; He did not [facility] inpatient rehab. He did finish one calss at [facility]. He is working. His mother reports he seems less anxious and tremulous. He reports mood good. Discussed working with a therpaist to work on nicotine and polysubstance use. He does not feel ready for medications; We discussed meeting one more time in 8 weeks to reassess his progress and motivation for medications. 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 Subjective Subjective Medication Compliance: No Review of Systems Medical Review of Systems: unchanged Mental Status Exam Mental Status Exam Patient Appearance: Disheveled, Perspiring and Appropriate Patient Orientation: Person, Place, Time and Situation Level of Consciousness: Awake, Appropriate and Alert Patient Behavior: Appropriate, Cooperative, Anxious (mild) and Good Eye Contact Mood Description: Anxious (mild) Affect Description: Anxious (mild) and Nervous Patient Cognition Impaired: No Ability to Follow Directions: Fair Speech Pattern: Clear and Mumbled Memory Description: Intact Hallucinations: None Delusions: Not Present Thought Process: Intact and Goal Oriented Thought Content: positive for Intact, positive for Obsessional Thoughts and positive for Goal Oriented Judgement: Poor Assessment and Plan Assessment & Plan (1) Nicotine addiction: Status: Acute Qualifiers: Nicotine product type: other Substance use status: other nicotine- induced disorder Qualified Code(s): F17.298 - Nicotine dependence, other tobacco product, with other nicotine-induced disorders Code(s): F17.200 - Nicotine dependence, unspecified, uncomplicated (2) Occasional tremors: Status: Acute Code(s): R25.1 - Tremor, unspecified (3) Anxiety: Status: Acute Code(s): F41.9 - Anxiety disorder, unspecified (4) OCD (obsessive compulsive disorder): Status: Acute Qualifiers: Obsessive-compulsive disorder type: mixed obsessional thoughts and acts Qualified Code(s): F42.2 - Mixed obsessional thoughts and acts Code(s): F42.9 - Obsessive-compulsive disorder, unspecified (5) Bipolar II disorder, mild, depressed, with anxious distress: Status: Acute Code(s): F31.81 - Bipolar II disorder (6) Substance abuse, continuous: Status: Acute Code(s): F19.10 - Other psychoactive substance abuse, uncomplicated (7) Substance use disorder: Status: Acute Code(s): F19.90 - Other psychoactive substance use, unspecified, uncomplicated Plan education re; substance abuse and need for treatment; He and his family need therapy and more services than I can provide in a consultation. recommend addiction medicine consult referral to a clinic that has dual dx services for him and for family counseling coordinate with PCP Counseling and coordination of Care Pt. Self Management counseling: Mod caffeine/ETOH intake, Nutrition education and improvement, Substance abuse tx adhere, General coping skills and Problem solving Details-Self Mgmt counseling: tobacco cessation addiction medicine fro kratom, nicotine, etoh, energy drinks Medication management counseling: Effectiveness, Side effects, Dosing range, Duration, Drug interaction and Adherence Diagnosis and Prognosis Counseling: Accuracy of diagnosis, Prognosis over time, Impact of diagnosis on life functions, Impact of family relationship, Problematic behaviors secondary to diagnosis and Adequacy of current interventions Details: I spent 45 minutes reviewing the record, seeing the patient and documenting in the medical record. Counseling provided to the patient/caregiver as outlined below. Addressed patient/caregiver concerns regarding current medication regime including effective adherence. Addressed patient/caregiver concerns regarding diagnosis and prognosis including accuracy of diagnosis, prognosis over time, impact of diagnosis. Addressed patient/caregiver concerns regarding impact of recent stressors. [facility] Medical History (Updated 03/29/25 @ 12:41 by Ruma Villasenor APRN) Sinus tachycardia Right bundle branch block Substance use disorder Anxiety Occasional tremors Family History Father No problems noted. Mother No problems noted. Social History Housing: House Alcohol intake: current Alcohol intake frequency: does not drink Patient Tobacco Use Status: Never used Tobacco service: No Current occupational status: employed Cognitive needs: No Hearing needs: No Vision needs: Yes (rx glasses) Social History: lives with parents and 1 sister; sister has Bipolar I Disorder Substance History: THC daily use in past. None now; etoh 2 beers several times a week. nicotine pouches up to 63 mg per week or more. Trauma History: deferred Coding Level of Care Code Est Pt Level 3 (91380) Therapy 30m w/E&M (85124) Diagnoses Other tobacco product nicotine dependence with other nicotine-induced disorder F17.298 Nicotine product type: other Substance use status: other nicotine-induced disorder Occasional tremors R25.1 Anxiety F41.9 Mixed obsessional thoughts and acts F42.2 Obsessive-compulsive disorder type: mixed obsessional thoughts and acts Bipolar II disorder, mild, depressed, with anxious distress F31.81 Substance abuse, continuous F19.10 Substance use disorder F19.90
--- OUTSIDE RECORDS SUMMARY | 2025-04-25 18:19 | XMS_ITS | Clinical Summary ---
Author Organization [facility] Address [address] [facility] [address] [place] [address] Phone Care Team Providers Care Novelty Dipper Name Role Phone Darryl Hammond MD Primary Care Provider [phone] Allergies No known active allergies Medications famotidine [...] 12/30/2013 Medical Devices Not on file Insurance [facility] [place] [address] [place] [address] [place] [place] [address] [place] [address] [place] [address] [place] [address] [place] [id number] [place] [address] [place] [address] [place] [address] [place] [address] [place] [address] [place] [address] HMO POS Care Teams Novelty Dipper Relationship Specialty Start Date End Date Darryl Hammond MD [address] [place] [address] [place] [address] PCP - General Pediatrics 12/17/16 Additional Source Comments The information contained in this document represents components of the legal health record. It is not the complete legal health record.[facility]
--- OUTSIDE RECORDS SUMMARY | 2025-04-25 18:19 | XMS_ITS | Patient Health Record ---
Author Organization [facility] Julia brittaney Estiven Address [address] [facility] [place] [address] Care Team Providers Care Instructional Consultant Name Role Phone Darryl Hammond MD Primary Care Provider Leah Barrow Unavailable [phone] Allergies Allergen (clinical drug ingredient) Drug/Non Drug [...] Treatment Pending Test Test Name Order Date [id number] Plate 10/08/2017 [id number] 10/29/2017 [id number]- Debride <25 sq cm 11/26/2017 [id number] SKIN/TISSUE 11/12/2017 69891 I&D ABSCESS- SIMPLE,SINGLE 018 [id number] I&D ABSCESS- SIMPLE,SINGLE 018 Insurance Providers Payer Name Payer Address Payer Phone Subscriber Number Group Number Insured Name Patient Relationship to Insured Coverage Start Date Coverage End Date [facility] [address] [place], [place] [phone] [id number] Adam Tate Child - Insured has Financial Responsibility Medical (General) History Medical History History ICD Code Anxiety Surgical History Surgery Date(Month/Year) colonoscopy endoscopy
--- OUTSIDE RECORDS SUMMARY | 2025-04-25 18:19 | XMS_ITS | Encounter Summary ---
Author Organization [facility] Address [address] [place] [address] Phone Care Team Providers Care Diabetes Manager Name Role Phone Darryl Hammond MD Primary Care Provider [phone] Encounter Details Date Type Department Care Team (Late st Contact Info) Description 12/19/2016 Conversion Encounter [facility] - [address] [address] Social History Tobacco Use Types Packs/Day Years [...] on filedocumented in this encounter Care Teams Diabetes Manager Relationship Specialty Start Date End Date Darryl Hammond MD [address] [place] [address] [place] [address] PCP - General 09/10/17 10/25/24 documented as of this encounter
--- OUTSIDE RECORDS SUMMARY | 2025-04-25 18:19 | XMS_ITS | Clinical Summary ---
Author Organization [facility] Address [address] [place] [address] Phone Care Team Providers Care Metal Sprayer Protective Coating Name Role Phone Unavailable Primary Care Provider [...] 18 Meningococcal Vaccine Completed 12/04/2018, 014 Insurance [facility]
--- OUTSIDE RECORDS SUMMARY | 2025-04-25 18:19 | XMS_ITS | Encounter Summary ---
Author Organization [facility] Address [address] [place] [address] Phone Care Team Providers Care Sewer Separation Designer Name Role Phone Darryl Hammond MD Primary Care Provider [phone] Encounter Details Date Type Department Care Team (Late st Contact Info) Description 09/10/2010 Conversion Encounter [facility] [address] [place] [address] [place] [address] Social History Tobacco Use Types Packs/Day Years [...] on filedocumented in this encounter Care Teams Sewer Separation Designer Relationship Specialty Start Date End Date Darryl Hammond MD [address] [place] [address] [place] [address] PCP - General 09/10/17 10/25/24 documented as of this encounter
--- OUTSIDE RECORDS SUMMARY | 2025-04-25 18:19 | XMS_ITS | Encounter Summary ---
Author Organization [facility] Address [address] [place] [address] Phone Care Team Providers Care Soaker Helper Name Role Phone Darryl Hammond MD Primary Care Provider [phone] Reason for Visit * Reason Comments Med Refill Encounter Details Date Type Department Care Team (Late st Contact Info) Description 09/15/2022 Refill [facility] [address] [place] [address] [place] [address] Darryl Hammond MD [address] [place] [address] [place] [address] Acne rosacea Social History Tobacco Use Types [...] Rosacea documented in this encounter Care Teams Soaker Helper Relationship Specialty Start Date End Date Darryl Hammond MD [facility] [facility] [place] [address] PCP - General 09/10/17 10/25/24 documented as of this encounter
== END 2025-04-25 15:45 | disposition home or self-care (01) ==
LOC: HO.HOP 15:04
PROVIDERS: PCP Internal Medicine; Visit Provider Clinical Nurse Specialist Psychiatric/Mental Health
DX: F17.298 Nicotine dependence, other tobacco product, with other nicotine-induced disorders (principal); R25.1 Tremor, unspecified; F41.9 Anxiety disorder, unspecified; F42.2 Mixed obsessional thoughts and acts; F31.81 Bipolar II disorder; F19.10 Other psychoactive substance abuse, uncomplicated; F19.90 Other psychoactive substance use, unspecified, uncomplicated
CPT/HCPCS: 90833; 99213